=== PATIENT | female | born 1985 | race Caucasian/White ===

== ENCOUNTER 2017-01-22 19:20 | Emergency (ER) | payer OTHER ==
[2017-01-22] MEDS ORDERED: Sodium Chloride 0.9% 10 ML Syringe FLUSH PRN (19:46)
[2017-01-22] MEDS ORDERED: methylPREDNISolone Sodium Succinate 125 MG/2 ML SDV IVPUSH ONE (19:46)
[2017-01-22] MEDS ORDERED: Albuterol/Ipratropium 3.0-0.5 MG/3 ML Neb Soln NEB ONE (19:47)
--- NOTE | 2017-01-22 19:56 | EDM.PDOC ---
ED HPI GENERAL MEDICAL PROBLEM - General Chief Complaint: Respiratory Problem Stated Complaint: SOB Time Seen by Provider: 01/22/17 19:40 Source of Information: Reports: Patient History Limitations: Reports: No Limitations - History of Present Illness INITIAL COMMENTS - FREE TEXT/NARRATIVE: The patient presents with shortness of breath and wheezing. This started today. She just moved here and she was moving her stuff in the house and there was dust and that triggered an asthma exacerbation. She has moderate to severe asthma. She has no fever. She does have a cough. Onset: Gradual Duration: Hour(s): Location: Reports: Chest Quality: Reports: Other (tightness) Severity: Mild Improves with: Reports: Immobilization Worsens with: Reports: Movement Context: Reports: Activity (She was moving into her house) Associated Symptoms: Reports: Chest Pain, Cough, Shortness of Breath. Denies: Fever/Chills, Nausea/Vomiting Chest Pain Score (Numeric/FACES): 3 - Related Data Allergies Allergy/AdvReac Type Severity Reaction Status Date / Time animal dander Allergy Shortness Verified 01/22/17 19:32 of Breath Home Meds: Home Meds Prednisone [IJD: predniSONE] 40 mg PO WITHBREAKFAST #10 tab 01/22/17 [Rx] Past Medical History Respiratory History: Reports: Asthma, SOB Musculoskeletal History: Reports: Fibromyalgia Psychiatric History: Reports: Depression Social & Family History - Tobacco Use Smoking Status *Q: Never Smoker Second Hand Smoke Exposure: No - Caffeine Use Caffeine Use: Reports: Coffee - Recreational Drug Use Recreational Drug Use: No ED ROS GENERAL - Review of Systems Review Of Systems: See Below Constitutional: Reports: No Symptoms HEENT: Reports: No Symptoms Respiratory: Reports: Shortness of Breath, Wheezing, Cough Cardiovascular: Reports: Chest Pain (tightness) Endocrine: Reports: No Symptoms GI/Abdominal: Reports: No Symptoms : Reports: No Symptoms ED EXAM, GENERAL - Physical Exam Exam: See Below Exam Limited By: No Limitations General Appearance: Alert, No Apparent Distress Ears: Normal External Exam Nose: Normal Inspection Head: Atraumatic, Normocephalic Neck: Normal Inspection Respiratory/Chest: No Respiratory Distress, Decreased Breath Sounds, Wheezing ( Moderate) Cardiovascular: Regular Rate, Rhythm, No Edema, No Murmur GI/Abdominal: Soft, Non-Tender, No Organomegaly, No Mass Back Exam: Normal Inspection Extremities: Normal Inspection Course - Vital Signs Last Recorded V/S: Last Vital Signs Temp 97.1 F 01/22/17 19:26 Pulse 91 01/22/17 19:26 Resp 18 01/22/17 19:26 BP 141/99 H 01/22/17 19:26 Pulse Ox 94 L 01/22/17 20:04 - Orders/Labs/Meds Orders: Active Orders 24 hr Category Date Time Status Peripheral IV Care [RC] . DIRECTED Care 01/22/17 19:46 Active RT Aerosol Therapy [RC] ASDIRECTED Care 01/22/17 19:47 Active RT Post Treatment Assessment [RC] Click to Edit Care 01/22/17 20:20 Ordered RT Pre-Treatment Assessment [RC] Click to Edit Care 01/22/17 20:20 Ordered Albuterol [Proventil HFA] Med 01/22/17 20:20 Once 1 gm INH ONETIME ONE Sodium Chloride 0.9% [Saline Flush] Med 01/22/17 19:46 Active 10 ml FLUSH ASDIRECTED PRN Peripheral IV Insertion Adult [OM.PC] Routine Oth 01/22/17 19:46 Ordered Medication Orders Sodium Chloride (Saline Flush) 10 ml FLUSH ASDIRECTED PRN PRN Reason: Keep Vein Open Last Admin: 01/22/17 19:57 Dose: 10 ml Meds: Medications Generic Name Dose Route Start Last Admin Trade Name Freq PRN Reason Stop Dose Admin Sodium Chloride 10 ml 01/22/17 19:46 01/22/17 19:57 Saline Flush FLUSH 10 ml ASDIRECTED PRN Administration Keep Vein Open Discontinued Medications Generic Name Dose Route Start Last Admin Trade Name Freq PRN Reason Stop Dose Admin Albuterol/Ipratropium 3 ml 01/22/17 19:47 01/22/17 20:02 Duoneb 3.0-0.5 Mg/3 Ml NEB 01/22/17 19:48 3 ml ONETIME ONE Administration Methylprednisolone Sodium Succinate 125 mg 01/22/17 19:46 01/22/17 19:57 Solu-Medrol IVPUSH 01/22/17 19:47 125 mg ONETIME ONE Administration - Re-Assessments/Exams Free Text/Narrative Re-Assessment/Exam: 01/22/17 19:56 I ordered an IV saline lock, duoneb and solu-medrol 125mg IV. 01/22/17 20:20 She is moving air better. I will give her an albuterol inhaler 2 puffs now and a prescription for some prednisone. Departure - Departure Time of Disposition: 20:25 Disposition: Home, Self-Care 01 Condition: Good Clinical Impression: Exacerbation of asthma Qualifiers: Asthma severity: moderate Asthma persistence: unspecified Qualified Code(s): J45.901 - Unspecified asthma with (acute) exacerbation - Discharge Information Prescriptions: Prednisone [IJD: predniSONE] 40 mg PO WITHBREAKFAST #10 tab Referrals: PCP,None [Primary Care Provider] - Adeline Villanueva MD [Physician] - 1 Week Forms: ED Department Discharge Additional Instructions: Take the prednisone 40mg daily for 5 days. You can start it tomorrow morning. You had a dose tonight. Use the albuterol inhaler 2 puffs every 4 to 6 hours as needed for wheezing and shortness of breath. Follow up with Dr Villanueva or one of her partners within 1 week. Please return if you are worse. - My Orders Last 24 Hours: My Active Orders 01/22/17 19:46 Peripheral IV Care [RC] . DIRECTED Sodium Chloride 0.9% [Saline Flush] 10 ml FLUSH ASDIRECTED PRN Peripheral IV Insertion Adult [OM.PC] Routine 01/22/17 19:47 RT Aerosol Therapy [RC] ASDIRECTED 01/22/17 20:20 RT Post Treatment Assessment [RC] Click to Edit RT Pre-Treatment Assessment [RC] Click to Edit Albuterol [Proventil HFA] 1 gm INH ONETIME ONE - Assessment/Plan Last 24 Hours: My Active Orders 01/22/17 19:46 Peripheral IV Care [RC] . DIRECTED Sodium Chloride 0.9% [Saline Flush] 10 ml FLUSH ASDIRECTED PRN Peripheral IV Insertion Adult [OM.PC] Routine 01/22/17 19:47 RT Aerosol Therapy [RC] ASDIRECTED 01/22/17 20:20 RT Post Treatment Assessment [RC] Click to Edit RT Pre-Treatment Assessment [RC] Click to Edit Albuterol [Proventil HFA] 1 gm INH ONETIME ONE
[2017-01-22] MEDS ORDERED: Albuterol 6.7 GM Inhaler INH ONE (20:20)
== END 2017-01-22 20:40 | disposition home or self-care (01) ==
LOC: JD.ED 19:20
DX: J45.901 Unspecified asthma with (acute) exacerbation (principal)
CPT/HCPCS: 94640; 96374; 99285; A9270; J2930; J7050; 99284

== ENCOUNTER 2017-09-15 02:28 | Inpatient (IN) | payer OTHER ==
[2017-09-15] MEDS ORDERED: Albuterol/Ipratropium 3.0-0.5 MG/3 ML Neb Soln NEB ONE (02:49)
[2017-09-15] MEDS ORDERED: predniSONE 20 MG Tab PO STA (02:49)
[2017-09-15] MEDS ORDERED: Sodium Chloride 0.9% 10 ML Syringe FLUSH PRN (02:50)
[2017-09-15] MEDS ORDERED: Ondansetron 4 MG/2 ML SDV IVPUSH ONE (03:40)
[2017-09-15] MEDS ORDERED: Albuterol 0.083% 2.5 MG/3 ML Neb Soln NEB ONE ×3 (04:15→07:23)
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
[2017-09-15] MEDS ORDERED: Acetaminophen 325 MG Tab PO PRN (09:31)
[2017-09-15] MEDS ORDERED: Ondansetron 4 MG Tab.DIS PO PRN (09:31)
[2017-09-15] MEDS ORDERED: Polyethylene Glycol 3350 Powder 17 GM Packet PO PRN (09:31)
[2017-09-15] MEDS ORDERED: Albuterol 0.083% 2.5 MG/3 ML Neb Soln NEB PRN (09:31)
[2017-09-15] MEDS ORDERED: Ondansetron 4 MG/2 ML SDV IV PRN (09:31)
[2017-09-15] MEDS ORDERED: Docusate Sodium 100 MG Cap PO PRN (09:31)
[2017-09-15] MEDS ORDERED: Bisacodyl 5 MG Tab PO PRN (09:31)
[2017-09-15] MEDS ORDERED: Albuterol/Ipratropium 3.0-0.5 MG/3 ML Neb Soln NEB SCH ×2 (10:00→13:00)
[2017-09-15] MEDS: SALMETEROL PO SCH ×2 (11:27→20:35)
[2017-09-15] MEDS: FLUTICASONE PO SCH ×2 (11:27→20:35)
[2017-09-15] MEDS: methylPREDNISolone Sodium Succinate 125 MG/2 ML SDV IVPUSH SCH ×2 (11:47→18:15)
[2017-09-15] MEDS: Doxycycline 100 MG in Sodium Chloride 0.9% 100 ML IV SCH (13:27)
[2017-09-15] MEDS: Levalbuterol HCl 1.25 MG/3 ML Neb NEB SCH ×2 (15:06→20:34)
[2017-09-15] MEDS: Ipratropium 0.02% 0.5 MG/2.5 ML Neb Soln NEB SCH ×2 (15:06→20:34)
[2017-09-15] MEDS: Calcium Carbonate 500 MG Tab.Chew PO PRN (19:58)
[2017-09-15] MEDS: Montelukast 10 MG Tab PO SCH (21:20)
[2017-09-15] MEDS: Famotidine 20 MG Tab PO SCH ×2 (21:20→21:49)
[2017-09-16] MEDS: methylPREDNISolone Sodium Succinate 125 MG/2 ML SDV IVPUSH SCH ×3 (01:08→17:40)
[2017-09-16] MEDS: Doxycycline 100 MG in Sodium Chloride 0.9% 100 ML IV SCH ×2 (01:14→13:58)
[2017-09-16] MEDS: Ipratropium 0.02% 0.5 MG/2.5 ML Neb Soln NEB SCH ×3 (06:20→15:10)
[2017-09-16] MEDS: Levalbuterol HCl 1.25 MG/3 ML Neb NEB SCH ×4 (06:20→20:46)
[2017-09-16] MEDS: Famotidine 20 MG Tab PO SCH ×2 (09:05→20:59)
[2017-09-16] MEDS: FLUTICASONE PO SCH ×2 (09:32→20:46)
[2017-09-16] MEDS: SALMETEROL PO SCH ×2 (09:32→20:46)
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
[2017-09-16] MEDS ORDERED: LORazepam 0.5 MG Tab PO PRN (18:18)
[2017-09-16] MEDS ORDERED: Ipratropium 0.02% 0.5 MG/2.5 ML Neb Soln NEB PRN (18:22)
[2017-09-16] MEDS: Formoterol/Mometasone 200-5 MCG 8.8 GM Inhaler IH SCH (20:46)
[2017-09-16] MEDS: Montelukast 10 MG Tab PO SCH (20:59)
[2017-09-16] MEDS: Topiramate 25 MG Tab PO SCH (20:59)
[2017-09-17] MEDS: Doxycycline 100 MG in Sodium Chloride 0.9% 100 ML IV SCH ×2 (00:41→12:46)
[2017-09-17] MEDS ORDERED: methylPREDNISolone Sodium Succinate 125 MG/2 ML SDV IVPUSH SCH (06:00)
[2017-09-17] MEDS: metFORMIN 500 MG Tab PO SCH ×2 (06:00→17:25)
[2017-09-17] MEDS: Formoterol/Mometasone 200-5 MCG 8.8 GM Inhaler IH SCH ×2 (06:32→20:59)
[2017-09-17] MEDS: Levalbuterol HCl 1.25 MG/3 ML Neb NEB SCH ×4 (06:32→20:59)
--- NOTE | 2017-09-17 08:31 | CR ---
Chest: 2 views of the chest were obtained. Comparison: Prior chest x-ray of 09/15/17. Heart size and mediastinum are normal. Lungs are clear. No acute parenchymal densities are seen. Atelectasis that was seen previously has resolved. Bony structures appear within normal limits. Impression: 1. Resolved atelectasis. Nothing acute is appreciated. Diagnostic code #1
[2017-09-17] MEDS: UMECLIDINIUM BROMIDE INH SCH (09:23)
[2017-09-17] MEDS: [UNRECOGNIZED DRUG - SUPPLY] INH SCH (09:25)
[2017-09-17] MEDS: Topiramate 25 MG Tab PO SCH ×2 (09:52→21:16)
[2017-09-17] MEDS: Ferrous Sulfate 325 MG Tab PO SCH (09:52)
[2017-09-17] MEDS: Citalopram 20 MG Tab PO SCH (09:52)
[2017-09-17] MEDS: Famotidine 20 MG Tab PO SCH ×2 (09:52→21:16)
[2017-09-17] MEDS: Loratadine 10 MG Tab PO SCH (09:52)
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
[2017-09-17] MEDS: methylPREDNISolone Sodium Succinate 125 MG/2 ML SDV IVPUSH SCH (17:27)
[2017-09-17] MEDS: Calcium Carbonate 500 MG Tab.Chew PO PRN (19:37)
[2017-09-17] MEDS: Doxycycline 100 MG Cap PO SCH (21:17)
[2017-09-17] MEDS: Montelukast 10 MG Tab PO SCH (21:17)
[2017-09-18] MEDS: methylPREDNISolone Sodium Succinate 125 MG/2 ML SDV IVPUSH SCH (05:57)
[2017-09-18] MEDS: metFORMIN 500 MG Tab PO SCH (06:01)
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
[2017-09-18] MEDS: Formoterol/Mometasone 200-5 MCG 8.8 GM Inhaler IH SCH (06:36)
[2017-09-18] MEDS: Levalbuterol HCl 1.25 MG/3 ML Neb NEB SCH ×2 (06:36→09:25)
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
[2017-09-18] MEDS: Loratadine 10 MG Tab PO SCH (08:10)
[2017-09-18] MEDS: Citalopram 20 MG Tab PO SCH (08:10)
[2017-09-18] MEDS: Topiramate 25 MG Tab PO SCH (08:11)
[2017-09-18] MEDS: Ferrous Sulfate 325 MG Tab PO SCH (08:11)
[2017-09-18] MEDS: Doxycycline 100 MG Cap PO SCH (08:11)
[2017-09-18] MEDS: Famotidine 20 MG Tab PO SCH (08:11)
[2017-09-18] MEDS: UMECLIDINIUM BROMIDE INH SCH (09:25)
[2017-09-18] MEDS: [UNRECOGNIZED DRUG - SUPPLY] INH SCH (09:26)
== END 2017-09-18 13:21 | disposition home or self-care (01) | DRG 194 ==
LOC: JD.ED 02:28 → JD.MS 08:40 → OBSVTOIN 12:19
PROVIDERS: ADMIT Internal Medicine Cardiovascular Disease; ATTEND Internal Medicine Cardiovascular Disease
DX: J15.7 Pneumonia due to Mycoplasma pneumoniae (principal); J45.901 Unspecified asthma with (acute) exacerbation; Z68.41 Body mass index [BMI] 40.0-44.9, adult; R09.02 Hypoxemia; E66.01 Morbid (severe) obesity due to excess calories; R00.0 Tachycardia, unspecified; E78.5 Hyperlipidemia, unspecified; Z91.048 Other nonmedicinal substance allergy status; Z79.51 Long term (current) use of inhaled steroids; Z79.52 Long term (current) use of systemic steroids
CPT/HCPCS: 36415; 71046; 71046-26; 80048; 80061; 83036; 83735; 84703; 85025; 86140; 86738; 87486; 87581; 87633; 87798; 87899; 94640; 94664; 94667; 94761; 96374; 99284; 99285-25; A9270; A9270-GY; J2405; J2930; J7030; J7050; J7612

== ENCOUNTER 2019-03-22 17:24 | Inpatient (IN) | payer BC ==
[2019-03-22] MEDS ORDERED: Albuterol/Ipratropium 3.0-0.5 MG/3 ML Neb Soln NEB ONE ×2 (17:27→17:50)
[2019-03-22] MEDS ORDERED: methylPREDNISolone Sodium Succinate 125 MG/2 ML SDV IVPUSH ONE (17:28)
[2019-03-22] MEDS ORDERED: Magnesium Sulfate/Water 2 GM in Premix Bag 1 BAG IV ONE ×2 (17:30→20:00)
[2019-03-22] MEDS ORDERED: Albuterol/Ipratropium 3.0-0.5 MG/3 ML Neb Soln ONE (17:30)
[2019-03-22] MEDS ORDERED: Sodium Chloride 0.9% 10 ML Syringe FLUSH PRN (17:32)
[2019-03-22] MEDS ORDERED: Sodium Chloride 0.9% 1,000 ML IV SCH (17:45)
[2019-03-22] MEDS ORDERED: Albuterol 0.083% 2.5 MG/3 ML Neb Soln NEB ONE (17:51)
--- NOTE | 2019-03-22 18:04 | EDM.PDOC ---
ED HPI GENERAL MEDICAL PROBLEM - General Chief Complaint: Respiratory Problem Stated Complaint: SOB Time Seen by Provider: 03/22/19 17:32 Source of Information: Reports: Patient History Limitations: Reports: Respiratory Distress - History of Present Illness INITIAL COMMENTS - FREE TEXT/NARRATIVE: Patient is a 33-year-old female who presents with an acute asthma exacerbation. Patient does have a long history of severe asthma and states that the symptoms began 3 days ago, however they significantly worsened this afternoon. She has given herself numerous albuterol nebulizer treatments at home without relief. Upon presenting to the ER, she was 85% oxygen on room air and was in visible respiratory distress. She is able to speak a couple words at a time. Patient does state that she has a history of recent pneumonia for which she was hospitalized here. She denies contact with any known allergens. - Related Data Allergies Allergy/AdvReac Type Severity Reaction Status Date / Time animal dander Allergy Shortness Verified 10/03/18 09:33 of Breath seasonal allergies Allergy Other Uncoded 10/03/18 09:33 Home Meds: Home Meds Cetirizine [ZyrTEC] 10 mg PO DAILY 09/15/17 [History] Ferrous Sulfate 325 mg PO DAILY 09/15/17 [History] Montelukast Sodium [Singulair] 10 mg PO BEDTIME 09/15/17 [History] Peak Flow Meter [Peak-Air] 1 unit INH DAILY 09/15/17 [History] Topiramate 25 mg PO BID 09/15/17 [History] metFORMIN [Glucophage] 1,000 mg PO BIDMEALS 09/15/17 [History] raNITIdine HCl [Zantac] 150 mg PO BID PRN 09/15/17 [History] Albuterol Sulfate [Proair Hfa] 2 puff INH Q4H PRN #2 hfa.aer.ad 09/18/17 [Rx] Budesonide/Formoterol Fumarate [Symbicort 160-4.5 Mcg Inhaler] 2 puff INH BID # 1 hfa.aer.ad 09/18/17 [Rx] Cyclobenzaprine [Flexeril] 10 mg PO TID PRN #20 tab 10/03/18 [Rx] Azithromycin [Zithromax] 250 mg PO Q24H #4 tablet 01/12/19 [Rx] predniSONE 40 mg PO WITHBREAKFAST #8 tablet 01/12/19 [Rx] Past Medical History HEENT History: Reports: Other (See Below) Other HEENT History: sinus headaches Cardiovascular History: Reports: None Respiratory History: Reports: Asthma, Pneumonia, Recurrent, SOB, Other (See Below) Other Respiratory History: RSV, bronchial pneumonia has had breathing issues since then approx. 15 yrs. 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: Musculoskeletal History: Reports: Arthritis, Fibromyalgia Neurological History: Reports: Migraines Psychiatric History: Reports: Anxiety, Depression Endocrine/Metabolic History: Reports: Obesity/BMI 30+ Hematologic History: Reports: Anemia Immunologic History: Reports: None Oncologic (Cancer) History: Reports: None Dermatologic History: Reports: None - Infectious Disease History Infectious Disease History: Reports: Chicken Pox, RSV - Past Surgical History HEENT Surgical History: Reports: None, Other (See Below) Other HEENT Surgeries/Procedures: sinus surgery Respiratory Surgical History: Reports: None GI Surgical History: Reports: Bariatric Procedure, Other (See Below) Other GI Surgeries/Procedures: gastric "sleeve"-2014 Female Surgical History: Reports: Section, Tubal Ligation Endocrine Surgical History: Reports: None Neurological Surgical History: Reports: None Musculoskeletal Surgical History: Reports: None, Other (See Below) Other Musculoskeletal Surgeries/Procedures:: slipped discs, and spinal degeneration Dermatological Surgical History: Reports: None Social & Family History - Family History Family Medical History: Noncontributory - Tobacco Use Smoking Status *Q: Never Smoker Second Hand Smoke Exposure: No - Caffeine Use Caffeine Use: Reports: Coffee - Living Situation & Occupation Living situation: Reports: , with Spouse, with Family (3 kids) Occupation: Unemployed ED ROS GENERAL - Review of Systems Review Of Systems: See Below Constitutional: Reports: No Symptoms. Denies: Fever, Chills HEENT: Reports: No Symptoms Respiratory: Reports: Shortness of Breath, Wheezing, Pleuritic Chest Pain, Cough Cardiovascular: Reports: No Symptoms Endocrine: Reports: No Symptoms GI/Abdominal: Reports: No Symptoms : Reports: No Symptoms Musculoskeletal: Reports: No Symptoms Skin: Reports: No Symptoms Neurological: Reports: No Symptoms Psychiatric: Reports: No Symptoms Hematologic/Lymphatic: Reports: No Symptoms Immunologic: Reports: No Symptoms ED EXAM, GENERAL - Physical Exam Exam: See Below Exam Limited By: No Limitations General Appearance: Alert, WD/WN, Moderate Distress Respiratory/Chest: Respiratory Distress, Decreased Breath Sounds, Wheezing ( inspipatory and expiratory throughtout), Other Cardiovascular: Normal Peripheral Pulses, Regular Rate, Rhythm, No Murmur Neurological: Alert, Oriented, Normal Cognition Psychiatric: Normal Affect, Anxious Skin Exam: Warm, Dry, Normal Color, No Rash Course - Vital Signs Last Recorded V/S: Last Vital Signs Temp 96.2 F 03/22/19 17:29 Pulse 126 H 03/22/19 17:29 Resp 34 H 03/22/19 17:29 BP 143/106 H 03/22/19 17:29 Pulse Ox 100 03/22/19 18:45 - Orders/Labs/Meds Orders: Active Orders 24 hr Category Date Time Status Peripheral IV Care [RC] . DIRECTED Care 03/22/19 17:32 Active RT Aerosol Therapy [RC] ASDIRECTED Care 03/22/19 17:27 Active RT Aerosol Therapy [RC] ASDIRECTED Care 03/22/19 17:51 Active RT Aerosol Therapy [RC] ASDIRECTED Care 03/22/19 17:52 Active Chest 1V Frontal [CR] Stat Exams 03/22/19 17:32 Taken INFLUENZA A+B AG SCREEN [RM] Stat Lab 03/22/19 18:17 Ordered Levofloxacin/Dextrose 5%-Water [Levaquin in D5W 750 MG/ Med 03/22/19 18:33 Active 150 ML] 750 mg Premix Bag 1 bag IV ONETIME Sodium Chloride 0.9% [Normal Saline] 1,000 ml Med 03/22/19 17:45 Active IV ASDIRECTED Sodium Chloride 0.9% [Saline Flush] Med 03/22/19 17:32 Active 10 ml FLUSH ASDIRECTED PRN Peripheral IV Insertion Adult [OM.PC] Stat Oth 03/22/19 17:32 Ordered Medication Orders Albuterol/Ipratropium (Duoneb 3.0-0.5 Mg/3 Ml) 3 ml NEB Q4HRRT ELLIE Budesonide (Pulmicort) 0.5 mg NEB BIDRT ELLIE Enoxaparin Sodium (Lovenox) 40 mg SUBCUT DAILY ELLIE Guaifenesin (Robitussin) 200 mg PO Q8H ELLIE Guaifenesin/Codeine Phosphate (Robitussin Ac) 5 ml PO Q6H ELLIE Sodium Chloride (Normal Saline) 1,000 mls @ 500 mls/hr IV ASDIRECTED ELLIE Last Admin: 03/22/19 17:54 Dose: 500 mls/hr Levofloxacin/Dextrose 750 mg/ (Premix) 150 mls @ 100 mls/hr IV ONETIME ONE Stop: 03/22/19 20:02 Levofloxacin/Dextrose 750 mg/ (Premix) 150 mls @ 100 mls/hr IV Q24H ELLIE Ipratropium [place] (Atrovent) 0.5 mg NEB Q8HRRT ELLIE Morphine Sulfate (Morphine) 1 mg IVPUSH Q2H PRN PRN Reason: Pain (severe 7-10) Stop: 03/23/19 18:37 Sodium Chloride (Saline Flush) 10 ml FLUSH ASDIRECTED PRN PRN Reason: Keep Vein Open Last Admin: 03/22/19 17:47 Dose: 10 ml Labs: Laboratory Tests 03/22/19 03/22/19 03/22/19 Range/Units 17:30 17:30 18:17 WBC 9.65 (3.98-10.04) K/mm3 RBC 5.90 H (3.98-5.22) M/mm3 Hgb 11.1 L (11.2-15.7) gm/dl Hct 37.1 (34.1-44.9) % MCV 62.9 L (79.4-94.8) fl MCH 18.8 L (25.6-32.2) pg MCHC 29.9 L (32.2-35.5) g/dl RDW Std Deviation 46.9 H (36.4-46.3) fL Plt Count 512 H (182-369) K/mm3 MPV 10.1 (9.4-12.3) fl Neut % (Auto) 55.9 (34.0-71.1) % Lymph % (Auto) 19.0 L (19.3-51.7) % [place] % (Auto) 4.5 L (4.7-12.5) % Eos % (Auto) 19.0 H (0.7-5.8) Baso % (Auto) 1.5 H (0.1-1.2) % Neut # (Auto) 5.41 (1.56-6.13) K/mm3 Lymph # (Auto) 1.83 (1.18-3.74) K/mm3 [place] # (Auto) 0.43 H (0.24-0.36) K/mm3 Eos # (Auto) 1.83 H (0.04-0.36) K/mm3 Baso # (Auto) 0.14 H (0.01-0.08) K/mm3 Manual Slide Review Abnormal smear Puncture Site Lt radial ABG pH 7.31 L (7.35-7.45) ABG pCO2 42.7 (35.0-45.0) mmHg ABG pO2 60.0 L (80.0-100.0) mmHg ABG HCO3 20.9 L (22.0-26.0) meq/L ABG O2 Saturation 89.9 L (96.0-97.0) % ABG Base Excess -4.5 L (-2-2.0) Paulie Test Positive O2 Delivery Device Room air FiO2 0.00 L (21.00-100.00) % Sodium 139 (136-145) mEq/L Potassium 3.9 (3.5-5.1) mEq/L Chloride 105 (98-107) mEq/L Carbon Dioxide 23 (21-32) mEq/L Anion Gap 14.9 (5-15) BUN 6 L (7-18) mg/dL Creatinine 1.0 (0.55-1.02) mg/dL Est Cr Clr Drug Dosing 74.21 mL/min Estimated GFR (MDRD) > 60 (>60) mL/min BUN/Creatinine Ratio 6.0 L (14-18) Glucose 94 (74-106) mg/dL Calcium 8.7 (8.5-10.1) mg/dL Total Bilirubin 0.4 (0.2-1.0) mg/dL AST 18 (15-37) U/L ALT 21 (14-59) U/L Alkaline Phosphatase 57 (46-116) U/L Total Protein 7.9 (6.4-8.2) g/dl Albumin 3.9 (3.4-5.0) g/dl Globulin 4.0 gm/dL Albumin/Globulin Ratio 1.0 (1-2) Meds: Medications Generic Name Dose Route Start Last Admin Trade Name Freq PRN Reason Stop Dose Admin Albuterol/Ipratropium 3 ml 03/22/19 22:00 Duoneb 3.0-0.5 Mg/3 Ml NEB Q4HRRT ELLIE Budesonide 0.5 mg 03/22/19 21:00 Pulmicort NEB BIDRT ELLIE Enoxaparin Sodium 40 mg 03/23/19 09:00 Lovenox SUBCUT DAILY ELLIE Guaifenesin 200 mg 03/22/19 22:00 Robitussin PO Q8H ELLIE Guaifenesin/Codeine Phosphate 5 ml 03/22/19 18:45 Robitussin Ac PO Q6H ELLIE Sodium Chloride 1,000 mls @ 500 mls/hr 03/22/19 17:45 03/22/19 17:54 Normal Saline IV 500 mls/hr ASDIRECTED ELLIE Administration Levofloxacin/Dextrose 750 mg/ 150 mls @ 100 mls/hr 03/22/19 18:33 Premix IV 03/22/19 20:02 ONETIME ONE Levofloxacin/Dextrose 750 mg/ 150 mls @ 100 mls/hr 03/22/19 19:00 Premix IV Q24H ELLIE Ipratropium [place] 0.5 mg 03/22/19 21:00 Atrovent NEB Q8HRRT ELLIE Morphine Sulfate 1 mg 03/22/19 18:35 Morphine IVPUSH 03/23/19 18:37 Q2H PRN Pain (severe 7-10) Sodium Chloride 10 ml 03/22/19 17:32 03/22/19 17:47 Saline Flush FLUSH 10 ml ASDIRECTED PRN Administration Keep Vein Open Discontinued Medications Generic Name Dose Route Start Last Admin Trade Name Freq PRN Reason Stop Dose Admin Albuterol 7.5 mg 03/22/19 17:51 03/22/19 18:00 Proventil Neb Soln NEB 03/22/19 17:52 7.5 mg ONETIME ONE Administration Albuterol/Ipratropium 3 ml 03/22/19 17:27 03/22/19 17:34 Duoneb 3.0-0.5 Mg/3 Ml NEB 03/22/19 17:28 Not Given ONETIME ONE Albuterol/Ipratropium Confirm 03/22/19 17:30 03/22/19 17:34 Duoneb 3.0-0.5 Mg/3 Ml Administered 03/22/19 17:31 3 ml Dose Administration 3 ml .ROUTE .STK-MED ONE Albuterol/Ipratropium 3 ml 03/22/19 17:50 03/22/19 17:52 Duoneb 3.0-0.5 Mg/3 Ml NEB 03/22/19 17:51 3 ml ONETIME ONE Administration Magnesium Sulfate 2 gm/ Premix 50 mls @ 50 mls/hr 03/22/19 17:30 03/22/19 17: 50 IV 03/22/19 18:29 50 mls/hr ONETIME ONE Administration Methylprednisolone Sodium Succinate 125 mg 03/22/19 17:28 03/22/19 17:46 Solu-Medrol IVPUSH 03/22/19 17:29 125 mg ONETIME ONE Administration Oseltamivir Phosphate 75 mg 03/22/19 18:34 Tamiflu PO 03/22/19 18:35 ONETIME ONE - Re-Assessments/Exams Free Text/Narrative Re-Assessment/Exam: Upon entering the room, patient was in obvious respiratory distress. She sitting upright leaning forward and speaks in 1-2 word sentences. Oxygen saturation was initially 85% on room air. O2 was applied at 2 L via nasal cannula with improvement to 94% percent noted. DuoNeb treatment was ordered and will be repeated in 20 minutes, as well as solu-Medrol 125 mg IV, magnesium 2 mg IV, nS at 500 mils per hour, and albuterol 7.5 mg continuous after the second DuoNeb is complete. CBC, CMP, ekg, influenza screen, and two-view chest x-ray have also been ordered. Patient does have a history of needing to be hospitalized for her acute asthma exacerbations. We'll reassess after her continuous albuterol treatment is completed. 03/22/19 18:08 Patient only mildly improved after the 2 DuoNeb treatments and continuous albuterol treatment. She is 89-90% on room air with the albuterol running. Chest x-ray shows bibasilar atelectasis. There is no signs of pneumonia. EKG shows no acute abnormalities. Lab tests are still pending. I have contacted Dr. Gerardo regarding admission to the hospital. She requested that we order an ABG and she will be in to see the patient. 03/22/19 18:32 Dr. Gerardo will be admitting the patient to ICU for acute asthma exacerbation. She did quest that we order Levaquin 750 mg IV now and start her on Tamiflu. Departure - Departure Time of Disposition: 18:34 Disposition: Admitted As Inpatient 65 Condition: Poor Clinical Impression: Exacerbation of asthma Qualifiers: Asthma severity: moderate Asthma persistence: unspecified Qualified Code(s): J45.901 - Unspecified asthma with (acute) exacerbation - Discharge Information *PRESCRIPTION DRUG MONITORING PROGRAM REVIEWED*: No *COPY OF PRESCRIPTION DRUG MONITORING REPORT IN PATIENT MARCOS: No Sepsis Event Note - Evaluation Sepsis Screening Result: No Definite Risk - Focused Exam Vital Signs: Vital Signs Temp Pulse Resp BP Pulse Ox Pulse Ox 03/22/19 17:51 92 L 03/22/19 17:29 96.2 F 126 H 34 H 143/106 H 85 L 03/22/19 17:27 92 L Date Exam was Performed: 03/22/19 Time Exam was Performed: 18:52 - My Orders Last 24 Hours: My Active Orders 03/22/19 17:27 RT Aerosol Therapy [RC] ASDIRECTED 03/22/19 17:32 Peripheral IV Care [RC] . DIRECTED Chest 1V Frontal [CR] Stat Sodium Chloride 0.9% [Saline Flush] 10 ml FLUSH ASDIRECTED PRN Peripheral IV Insertion Adult [OM.PC] Stat 03/22/19 17:45 Sodium Chloride 0.9% [Normal Saline] 1,000 ml IV ASDIRECTED 03/22/19 17:51 RT Aerosol Therapy [RC] ASDIRECTED 03/22/19 17:52 RT Aerosol Therapy [RC] ASDIRECTED 03/22/19 18:17 INFLUENZA A+B AG SCREEN [RM] Stat 03/22/19 18:33 Levofloxacin/Dextrose 5%-Water [Levaquin in D5W 750 MG/150 ML] 750 mg Premix Bag 1 bag IV ONETIME - Assessment/Plan Last 24 Hours: My Active Orders 03/22/19 17:27 RT Aerosol Therapy [RC] ASDIRECTED 03/22/19 17:32 Peripheral IV Care [RC] . DIRECTED Chest 1V Frontal [CR] Stat Sodium Chloride 0.9% [Saline Flush] 10 ml FLUSH ASDIRECTED PRN Peripheral IV Insertion Adult [OM.PC] Stat 03/22/19 17:45 Sodium Chloride 0.9% [Normal Saline] 1,000 ml IV ASDIRECTED 03/22/19 17:51 RT Aerosol Therapy [RC] ASDIRECTED 03/22/19 17:52 RT Aerosol Therapy [RC] ASDIRECTED 03/22/19 18:17 INFLUENZA A+B AG SCREEN [] Stat 03/22/19 18:33 Levofloxacin/Dextrose 5%-Water [Levaquin in D5W 750 MG/150 ML] 750 mg Premix Bag 1 bag IV ONETIME
[2019-03-22] MEDS ORDERED: Levofloxacin/Dextrose 5%-Water 750 MG in Premix Bag 1 BAG IV ONE (18:33)
[2019-03-22] MEDS ORDERED: Oseltamivir 75 MG Cap PO ONE (18:34)
[2019-03-22] MEDS ORDERED: Morphine 2 MG/ML Syringe IVPUSH PRN (18:35)
--- NOTE | 2019-03-22 18:49 | PCM.HP.2 ---
H&P History of Present Illness - General Date of Service: 03/22/19 Admit Problem/Dx: Admission Diagnosis/Problem Admission Diagnosis/Problem Asthma with status asthmaticus - History of Present Illness Initial Comments - Free Text/Narative: This is a 33 year old female with past medical history of asthma who comes to the ED for acutely worsening shortness of breath. As per patient she has been having worsening cough and shortness of breath not responsive to PRN albuterol. Once she noticed her shortness of breath was not getting any better to the point that she was unable to catch her breath or speak, she decided to come in to the ED for further evaluation. - Related Data Allergies/Adverse Reactions: Allergies Allergy/AdvReac Type Severity Reaction Status Date / Time animal dander Allergy Shortness Verified 10/03/18 09:33 of Breath seasonal allergies Allergy Other Uncoded 10/03/18 09:33 Home Medications: Home Meds Cetirizine [ZyrTEC] 10 mg PO DAILY 09/15/17 [History] Ferrous Sulfate 325 mg PO DAILY 09/15/17 [History] Montelukast Sodium [Singulair] 10 mg PO BEDTIME 09/15/17 [History] Peak Flow Meter [Peak-Air] 1 unit INH DAILY 09/15/17 [History] Topiramate 25 mg PO BID 09/15/17 [History] metFORMIN [Glucophage] 1,000 mg PO BIDMEALS 09/15/17 [History] raNITIdine HCl [Zantac] 150 mg PO BID PRN 09/15/17 [History] Albuterol Sulfate [Proair Hfa] 2 puff INH Q4H PRN #2 hfa.aer.ad 09/18/17 [Rx] Budesonide/Formoterol Fumarate [Symbicort 160-4.5 Mcg Inhaler] 2 puff INH BID # 1 hfa.aer.ad 09/18/17 [Rx] Cyclobenzaprine [Flexeril] 10 mg PO TID PRN #20 tab 10/03/18 [Rx] Azithromycin [Zithromax] 250 mg PO Q24H #4 tablet 01/12/19 [Rx] predniSONE 40 mg PO WITHBREAKFAST #8 tablet 01/12/19 [Rx] Past Medical History HEENT History: Reports: Other (See Below) Other HEENT History: sinus headaches Cardiovascular History: Reports: None Respiratory History: Reports: Asthma, Pneumonia, Recurrent, SOB, Other (See Below) Other Respiratory History: RSV, bronchial pneumonia has had breathing issues since then approx. 15 yrs. 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: Musculoskeletal History: Reports: Arthritis, Fibromyalgia Neurological History: Reports: Migraines Psychiatric History: Reports: Anxiety, Depression Endocrine/Metabolic History: Reports: Obesity/BMI 30+ Hematologic History: Reports: Anemia Immunologic History: Reports: None Oncologic (Cancer) History: Reports: None Dermatologic History: Reports: None - Infectious Disease History Infectious Disease History: Reports: Chicken Pox, RSV - Past Surgical History HEENT Surgical History: Reports: None, Other (See Below) Other HEENT Surgeries/Procedures: sinus surgery Respiratory Surgical History: Reports: None GI Surgical History: Reports: Bariatric Procedure, Other (See Below) Other GI Surgeries/Procedures: gastric "sleeve"-2014 Female Surgical History: Reports: Section, Tubal Ligation Endocrine Surgical History: Reports: None Neurological Surgical History: Reports: None Musculoskeletal Surgical History: Reports: None, Other (See Below) Other Musculoskeletal Surgeries/Procedures:: slipped discs, and spinal degeneration Dermatological Surgical History: Reports: None Social & Family History - Family History Family Medical History: Noncontributory - Tobacco Use Smoking Status *Q: Never Smoker Second Hand Smoke Exposure: No - Caffeine Use Caffeine Use: Reports: Coffee - Living Situation & Occupation Living situation: Reports: , with Spouse, with Family (3 kids) Occupation: Unemployed H&P Review of Systems - Review of Systems: Review Of Systems: See Below General: Reports: Malaise. Denies: Fever, Chills, Weakness, Fatigue, Night Sweats, Diaphoresis, Decreased Appetite, Weight Loss, Weight Gain HEENT: Reports: Rhinitis, Post Nasal Drip, Sinus Congestion. Denies: Hearing Changes, Sore Throat, Vertigo Pulmonary: Reports: Shortness of Breath, Wheezing, Cough. Denies: Pleuritic Chest Pain, Sputum, Hemoptysis Cardiovascular: Reports: Chest Pain, Palpitations, Dyspnea on Exertion, Orthopnea. Denies: PND, Edema, Lightheadedness, Syncope, Claudication, Blood Pressure Problem Gastrointestinal: Denies: Abdominal Pain, Anorexia, Black Stool, Bloody Stool, Constipation, Diarrhea, Decreased Appetite, Difficulty Swallowing, Distension, Flatus, Hematemesis, Hematochezia, Melena, Mucous in Stool, Nausea, Stool Incontinence, Vomiting Genitourinary: Denies: Dysuria, Frequency, Burning, Pain, Urgency, Incontinence , Hematuria Musculoskeletal: Denies: Joint Pain, Joint Swelling, Muscle Pain, Muscle Stiffness Skin: Reports: Pallor. Denies: Cyanosis, Jaundice, Mottled, Diaphoresis, Dryness, Bruising, Pruritis Psychiatric: Denies: Confusion, Depression, Mood Lability, Anxiety, Agitation Neurological: Denies: Confusion, Dizziness, Headache, Numbness, Paresthesia Exam - Exam Exam: See Below - Vital Signs Vital Signs: Last Vital Signs Temp 96.2 F 03/22/19 17:29 Pulse 126 H 03/22/19 17:29 Resp 34 H 03/22/19 17:29 BP 143/106 H 03/22/19 17:29 Pulse Ox 92 L 03/22/19 17:51 Weight: 127.006 kg - Exam General: Alert, Oriented, Cooperative, Severe Distress HEENT: Other (injected conjunctiva, erythematous posterior pharynx) Neck: Supple, Trachea Midline, +2 Carotid Pulse wo Bruit, Full Range of Motion. No: Lymphadenopathy Lungs: Other (severely diminished air entry with wheezing throughout, minimal chest expansion) Cardiovascular: Tachycardia. No: Systolic Murmur, Diastolic Murmur, Rubs, Gallop/S3, Gallop/S4 GI/Abdominal Exam: Soft, Non-Tender. No: Guarding, Rebound Back Exam: Normal Inspection Extremities: Normal Inspection - Patient Data Result Diagrams: 03/22/19 17:30 03/22/19 17:30 Sepsis Event Note - Evaluation Sepsis Screening Result: No Definite Risk - Focused Exam Vital Signs: Vital Signs Temp Pulse Resp BP Pulse Ox Pulse Ox 03/22/19 17:51 92 L 03/22/19 17:29 96.2 F 126 H 34 H 143/106 H 85 L 03/22/19 17:27 92 L Date Exam was Performed: 03/22/19 Time Exam was Performed: 19:59 - Problem List (1) Severe asthma with exacerbation SNOMED Code(s): 086602220, 806720050 ICD Code: J45.901 - UNSPECIFIED ASTHMA WITH (ACUTE) EXACERBATION Status: Acute Current Visit: Yes (2) Microcytic hypochromic anemia SNOMED Code(s): 17635058 ICD Code: D50.9 - IRON DEFICIENCY ANEMIA, UNSPECIFIED Status: Acute Current Visit: Yes (3) Thrombocytosis SNOMED Code(s): 2490732 ICD Code: D47.3 - ESSENTIAL (HEMORRHAGIC) THROMBOCYTHEMIA Status: Acute Current Visit: Yes (4) Hyperlipidemia SNOMED Code(s): 50069566 ICD Code: E78.5 - HYPERLIPIDEMIA, UNSPECIFIED Status: Acute Priority: High Current Visit: No Qualifiers: Hyperlipidemia type: unspecified Qualified Code(s): E78.5 - Hyperlipidemia , unspecified (5) Hypoxemia SNOMED Code(s): 876135179 ICD Code: R09.02 - HYPOXEMIA Status: Acute Priority: High Current Visit : No (6) Tachycardia SNOMED Code(s): 9564852 ICD Code: R00.0 - TACHYCARDIA, UNSPECIFIED Status: Acute Priority: High Current Visit: No (7) Acute respiratory acidosis SNOMED Code(s): 78682390 ICD Code: E87.2 - ACIDOSIS Status: Acute Current Visit: Yes (8) Metabolic acidosis, normal anion gap (NAG) SNOMED Code(s): 784093102 ICD Code: E87.2 - ACIDOSIS Status: Acute Current Visit: Yes (9) Community acquired pneumonia SNOMED Code(s): 989682530 ICD Code: J18.9 - PNEUMONIA, UNSPECIFIED ORGANISM Status: Acute Current Visit: Yes Problem List Initiated/Reviewed/Updated: Yes Assessment/Plan Comment:: Severe asthma with exacerbation Community acquired pneumonia Acute respiratory acidosis Metabolic acidosis, normal anion gap (NAG) Hypoxemia Tachycardia Reactive Thrombocytosis URI symptoms for 1 week with worsening SOB Treated for PNA 1 month ago Came in to ED unable to speak more than 1 word at a time + SatO2 85% on RA No WBC count or fever PaO2 60 Given 4 DuoNebs in ED + Solumedrol + Mg SO4 2g PLAN - Start on BiPAP - Scheduled DuoNebs - Scheduled Budesonide - Scheduled Solumedrol - Start Levaquin - RSV panel - Procalcitonin - Mycoplasma and s. pneumo antigen - Admit to ICU Microcytic hypochromic anemia On iron supplementation at home PLAN - Iron level - B12, folic acid, reticulocyte count Hyperlipidemia No in statin benefit age group PLAN - Dietary consult - Encourage lifestyle modifications PROPHYLAXIS DVT- Lovenox GI- not indicated CODE STATUS: FULL CODE DISPOSITION: Patient will be admitted to ICU on BiPAP and scheduled neb treatments - Mortality Measure Prognosis:: Good
[2019-03-22] MEDS ORDERED: Levofloxacin/Dextrose 5%-Water 750 MG in Premix Bag 1 BAG IV SCH (19:00)
[2019-03-22] MEDS: Budesonide 0.5 MG/2 ML Neb Susp NEB SCH (20:41)
[2019-03-22] MEDS: Albuterol/Ipratropium 3.0-0.5 MG/3 ML Neb Soln NEB SCH (21:03)
[2019-03-22] MEDS: guaiFENesin 100 MG/5 ML Soln 10 ML UD Cup PO SCH (23:02)
[2019-03-23] MEDS: Albuterol/Ipratropium 3.0-0.5 MG/3 ML Neb Soln NEB SCH ×4 (01:26→14:20)
[2019-03-23] MEDS: guaiFENesin 100 MG/5 ML Soln 10 ML UD Cup PO SCH (05:14)
[2019-03-23] MEDS: Budesonide 0.5 MG/2 ML Neb Susp NEB SCH ×2 (05:16→20:15)
[2019-03-23] MEDS: Enoxaparin 40 MG/0.4 ML Syringe SUBCUT SCH (08:54)
[2019-03-23] MEDS: Azithromycin 250 MG Tab PO SCH (08:55)
[2019-03-23] MEDS ORDERED: Ipratropium 0.02% 0.5 MG/2.5 ML Neb Soln NEB SCH (14:00)
--- NOTE | 2019-03-23 14:26 | PCM.PN ---
- General Info Date of Service: 03/23/19 Subjective Update: Feeling better Did not sleep Hungry 03/21/19 Sat O2 trend 92-100 Slept with BiPAP - Patient Data Weight - Most Recent: 131.995 kg - Exam Quality Assessment: Supplemental Oxygen General: Alert, Oriented, Cooperative, Mild Distress HEENT: Pupils Equal, Pupils Reactive, EOMI, Mucous Membr. Moist/[place] Neck: Supple, Trachea Midline, No JVD, No Thyromegaly, +2 Carotid Pulse wo Bruit. No: Lymphadenopathy Lungs: Decreased Breath Sounds, Wheezing Cardiovascular: Regular Rate, Regular Rhythm. No: Murmurs, Gallops, Rubs GI/Abdominal Exam: Normal Bowel Sounds, Soft, Non-Tender, No Organomegaly Back Exam: Normal Inspection Extremities: Normal Inspection, Normal Range of Motion, Non-Tender Sepsis Event Note - Evaluation Sepsis Screening Result: No Definite Risk - Focused Exam Date Exam was Performed: 03/23/19 Time Exam was Performed: 14:19 - Problem List & Annotations (1) Severe asthma with exacerbation SNOMED Code(s): 239418157, 524534559 Code(s): J45.901 - UNSPECIFIED ASTHMA WITH (ACUTE) EXACERBATION Status: Acute Current Visit: Yes (2) Microcytic hypochromic anemia SNOMED Code(s): 80376536 Code(s): D50.9 - IRON DEFICIENCY ANEMIA, UNSPECIFIED Status: Acute Current Visit: Yes (3) Thrombocytosis SNOMED Code(s): 6781192 Code(s): D47.3 - ESSENTIAL (HEMORRHAGIC) THROMBOCYTHEMIA Status: Acute Current Visit: Yes (4) Hyperlipidemia SNOMED Code(s): 58466432 Code(s): E78.5 - HYPERLIPIDEMIA, UNSPECIFIED Status: Acute Priority: High Current Visit: No Qualifiers: Hyperlipidemia type: unspecified Qualified Code(s): E78.5 - Hyperlipidemia , unspecified (5) Hypoxemia SNOMED Code(s): 851814111 Code(s): R09.02 - HYPOXEMIA Status: Acute Priority: High Current Visit : No (6) Tachycardia SNOMED Code(s): 1637961 Code(s): R00.0 - TACHYCARDIA, UNSPECIFIED Status: Acute Priority: High Current Visit: No (7) Acute respiratory acidosis SNOMED Code(s): 67431730 Code(s): E87.2 - ACIDOSIS Status: Acute Current Visit: Yes (8) Metabolic acidosis, normal anion gap (NAG) SNOMED Code(s): 554525821 Code(s): E87.2 - ACIDOSIS Status: Acute Current Visit: Yes (9) Community acquired pneumonia SNOMED Code(s): 911356738 Code(s): J18.9 - PNEUMONIA, UNSPECIFIED ORGANISM Status: Acute Current Visit: Yes - Problem List Review Problem List Initiated/Reviewed/Updated: Yes - Plan Plan:: Severe asthma with exacerbation Community acquired pneumonia 2/2 Mycoplasma Hypoxemia Tachycardia Reactive Thrombocytosis URI symptoms for 1 week with worsening SOB Treated for PNA 1 month ago Came in to ED unable to speak more than 1 word at a time + SatO2 85% on RA No WBC count or fever + PaO2 60 Given 4 DuoNebs in ED + Solumedrol + Mg SO4 2g Mycoplasma + Peak flo2 150 pre and 180 post, expected 489 SatO2 trend >94% off BiPAP PLAN - Continue DuoNebs, Budesonide, Codeine + guaifenesin scheduled - Start azithromycin, continue levaquin - F/U RSV panel, strep pneumoniae - Scheduled solumedrol Microcytic hypochromic anemia On iron supplementation at home PLAN - Iron level - B12, folic acid, reticulocyte count Hyperlipidemia No in statin benefit age group PLAN - Dietary consult - Encourage lifestyle modifications Acute respiratory acidosis, resolved Metabolic acidosis, normal anion gap, improved PROPHYLAXIS DVT- Lovenox GI- not indicated CODE STATUS: FULL CODE DISPOSITION: Patient admitted to ICU on BiPAP and scheduled neb treatments, will keep in ICU as she is barely getting stable O2 sats.
[2019-03-23] MEDS ORDERED: Metoprolol Tartrate 5 MG/5 ML SDV IVPUSH ONE (14:40)
[2019-03-23] MEDS: methylPREDNISolone Sodium Succinate 125 MG/2 ML SDV IVPUSH SCH (14:50)
[2019-03-23] MEDS: Levalbuterol HCl 1.25 MG/3 ML Neb NEB SCH ×4 (16:09→22:14)
[2019-03-23] MEDS: Ipratropium 0.02% 0.5 MG/2.5 ML Neb Soln NEB SCH ×2 (18:01→22:14)
[2019-03-23] MEDS: Levofloxacin/Dextrose 5%-Water 750 MG in Premix Bag 1 BAG IV SCH (21:42)
[2019-03-24] MEDS: Levalbuterol HCl 1.25 MG/3 ML Neb NEB SCH ×8 (00:20→20:43)
[2019-03-24] MEDS: Ipratropium 0.02% 0.5 MG/2.5 ML Neb Soln NEB SCH ×4 (02:18→20:42)
[2019-03-24] MEDS: Budesonide 0.5 MG/2 ML Neb Susp NEB SCH ×2 (04:29→06:03)
[2019-03-24] MEDS ORDERED: Levalbuterol HCl 1.25 MG/3 ML Neb NEB PRN (07:13)
[2019-03-24] MEDS: Cyclobenzaprine 10 MG Tab PO SCH ×3 (08:38→20:40)
[2019-03-24] MEDS: Enoxaparin 40 MG/0.4 ML Syringe SUBCUT SCH (08:39)
[2019-03-24] MEDS: Azithromycin 250 MG Tab PO SCH (08:39)
--- NOTE | 2019-03-24 09:29 | CR ---
Chest: Portable view of the chest was obtained. Comparison: Prior chest x-ray of 01/10/19. Heart size and mediastinum are normal. Lungs are clear with no acute parenchymal change. Bony structures are grossly intact. Impression: 1. Nothing acute is appreciated on portable chest x-ray. Diagnostic code #1 This report was dictated in [place] Standard Time
[2019-03-24] MEDS: Codeine/guaiFENesin 100-10 MG/5 ML Syrup 5 ML Cup PO SCH ×2 (11:32→17:28)
--- NOTE | 2019-03-24 14:41 | PCM.PN ---
- General Info Date of Service: 03/24/19 Admission Dx/Problem (Free Text): Admission Diagnosis/Problem Admission Diagnosis/Problem Asthma with status asthmaticus Subjective Update: Patient doing better today. She is off oxygen and able to move around without dropping her oxygen saturation. Functional Status: Reports: Pain Controlled - Review of Systems General: Reports: No Symptoms HEENT: Reports: No Symptoms Pulmonary: Reports: Shortness of Breath, Wheezing Cardiovascular: Reports: No Symptoms Gastrointestinal: Reports: No Symptoms - Patient Data Vitals - Most Recent: Last Vital Signs Temp 96.5 F 03/24/19 08:00 Pulse 124 H 03/24/19 04:00 Resp 20 03/24/19 08:00 BP 142/98 H 03/24/19 08:00 Pulse Ox 96 03/24/19 13:35 Weight - Most Recent: 284 lb I&O - Last 24 Hours: Intake & Output 03/23/19 03/24/19 03/24/19 22:59 06:59 14:59 Intake Total 540 650 Output Total 600 Balance -60 650 Lab Results Last 24 Hours: Laboratory Results - last 24 hr 03/23/19 03/23/19 03/24/19 Range/Units 14:59 15:05 05:20 WBC 11.41 H (3.98-10.04) K/mm3 RBC 5.64 H (3.98-5.22) M/mm3 Hgb 10.7 L (11.2-15.7) gm/dl Hct 35.3 (34.1-44.9) % MCV 62.6 L (79.4-94.8) fl MCH 19.0 L (25.6-32.2) pg MCHC 30.3 L (32.2-35.5) g/dl RDW Std Deviation 46.6 H (36.4-46.3) fL Plt Count 505 H (182-369) K/mm3 MPV 10.6 (9.4-12.3) fl Neut % (Auto) 86.5 H (34.0-71.1) % Lymph % (Auto) 8.1 L (19.3-51.7) % [place] % (Auto) 5.0 (4.7-12.5) % Eos % (Auto) 0 L (0.7-5.8) Baso % (Auto) 0.0 L (0.1-1.2) % Neut # (Auto) 9.88 H (1.56-6.13) K/mm3 Lymph # (Auto) 0.92 L (1.18-3.74) K/mm3 [place] # (Auto) 0.57 H (0.24-0.36) K/mm3 Eos # (Auto) 0.00 L (0.04-0.36) K/mm3 Baso # (Auto) 0.00 L (0.01-0.08) K/mm3 Manual Slide Review Abnormal smear Puncture Site Lt radial ABG pH 7.42 (7.35-7.45) ABG pCO2 35.9 (35.0-45.0) mmHg ABG pO2 68.0 L (80.0-100.0) mmHg ABG HCO3 22.6 (22.0-26.0) meq/L ABG O2 Saturation 94.6 L (96.0-97.0) % ABG Base Excess -1.0 (-2-2.0) Paulie Test Positive VBG pH 7.31 (7.30-7.40) VBG pCO2 47.9 (41-51) mmHg VBG pO2 42.0 (40-80) mmHG VBG HCO3 23.3 (22-26) meq/L VBG O2 Saturation 72.1 VBG Base Excess -2.7 (-4.0-2.0) O2 Delivery Device Nasal cannula Bipap Oxygen Flow Rate 3.0 Sodium (136-145) mEq/L Potassium (3.5-5.1) mEq/L Chloride (98-107) mEq/L Carbon Dioxide (21-32) mEq/L Anion Gap (5-15) BUN (7-18) mg/dL Creatinine (0.55-1.02) mg/dL Est Cr Clr Drug Dosing mL/min Estimated GFR (MDRD) (>60) mL/min BUN/Creatinine Ratio (14-18) Glucose (74-106) mg/dL Calcium (8.5-10.1) mg/dL Phosphorus (2.6-4.7) mg/dL Magnesium (1.8-2.4) mg/dl 03/24/19 Range/Units 05:20 WBC (3.98-10.04) K/mm3 RBC (3.98-5.22) M/mm3 Hgb (11.2-15.7) gm/dl Hct (34.1-44.9) % MCV (79.4-94.8) fl MCH (25.6-32.2) pg MCHC (32.2-35.5) g/dl RDW Std Deviation (36.4-46.3) fL Plt Count (182-369) K/mm3 MPV (9.4-12.3) fl Neut % (Auto) (34.0-71.1) % Lymph % (Auto) (19.3-51.7) % [place] % (Auto) (4.7-12.5) % Eos % (Auto) (0.7-5.8) Baso % (Auto) (0.1-1.2) % Neut # (Auto) (1.56-6.13) K/mm3 Lymph # (Auto) (1.18-3.74) K/mm3 [place] # (Auto) (0.24-0.36) K/mm3 Eos # (Auto) (0.04-0.36) K/mm3 Baso # (Auto) (0.01-0.08) K/mm3 Manual Slide Review Puncture Site ABG pH (7.35-7.45) ABG pCO2 (35.0-45.0) mmHg ABG pO2 (80.0-100.0) mmHg ABG HCO3 (22.0-26.0) meq/L ABG O2 Saturation (96.0-97.0) % ABG Base Excess (-2-2.0) Paulie Test VBG pH (7.30-7.40) VBG pCO2 (41-51) mmHg VBG pO2 (40-80) mmHG VBG HCO3 (22-26) meq/L VBG O2 Saturation VBG Base Excess (-4.0-2.0) O2 Delivery Device Oxygen Flow Rate Sodium 140 (136-145) mEq/L Potassium 3.7 (3.5-5.1) mEq/L Chloride 104 (98-107) mEq/L Carbon Dioxide 23 (21-32) mEq/L Anion Gap 16.7 H (5-15) BUN 15 (7-18) mg/dL Creatinine 1.1 H (0.55-1.02) mg/dL Est Cr Clr Drug Dosing 64.84 mL/min Estimated GFR (MDRD) 57 (>60) mL/min BUN/Creatinine Ratio 13.6 L (14-18) Glucose 98 (74-106) mg/dL Calcium 9.5 (8.5-10.1) mg/dL Phosphorus 2.8 (2.6-4.7) mg/dL Magnesium 2.1 (1.8-2.4) mg/dl Nayan Results Last 24 Hours: Microbiology 03/23/19 18:50 Gram Stain - Final Sputum - Expectorated Sputum Culture - Preliminary 03/22/19 19:05 Quick Strep Confirmation Culture - Preliminary Throat Group A Streptococcus Rapid Screen - Final NEGATIVE STREP A SCREEN REFERENCE RANGE: NEGATIVE Med Orders - Current: Current Medications Budesonide (Pulmicort) 0.5 mg NEB BIDRT [facility] Last Admin: 03/24/19 06:03 Dose: Not Given Cyclobenzaprine HCl (Flexeril) 10 mg PO TID [facility] Last Admin: 03/24/19 08:38 Dose: 10 mg Enoxaparin Sodium (Lovenox) 40 mg SUBCUT DAILY [facility] Last Admin: 03/24/19 08:39 Dose: 40 mg Guaifenesin/Codeine Phosphate (Robitussin Ac) 5 ml PO Q6H [facility] Last Admin: 03/24/19 11:32 Dose: 5 ml Levofloxacin/Dextrose 750 mg/ (Premix) 150 mls @ 100 mls/hr IV Q24H [facility] Stop: 03/28/19 21:00 Last Admin: 03/23/19 21:42 Dose: 100 mls/hr Ipratropium [place] (Atrovent) 0.5 mg NEB Q8HRRT [facility] Last Admin: 03/24/19 13:33 Dose: 0.5 mg Levalbuterol HCl (Xopenex) 1.25 mg NEB Q2H PRN PRN Reason: Wheezing Levalbuterol HCl (Xopenex) 1.25 mg NEB Q4HRRT [facility] Last Admin: 03/24/19 13:33 Dose: 1.25 mg Methylprednisolone Sodium Succinate (Solu-Medrol) 125 mg IVPUSH Q24H [facility] Last Admin: 03/23/19 14:50 Dose: 125 mg Sodium Chloride (Saline Flush) 10 ml FLUSH ASDIRECTED PRN PRN Reason: Keep Vein Open Last Admin: 03/22/19 17:47 Dose: 10 ml Discontinued Medications Albuterol (Proventil Neb Soln) 7.5 mg NEB ONETIME ONE Stop: 03/22/19 17:52 Last Admin: 03/22/19 18:00 Dose: 7.5 mg Albuterol/Ipratropium (Duoneb 3.0-0.5 Mg/3 Ml) 3 ml NEB ONETIME ONE Stop: 03/22/19 17:28 Last Admin: 03/22/19 17:34 Dose: Not Given Albuterol/Ipratropium (Duoneb 3.0-0.5 Mg/3 Ml) Confirm Administered Dose 3 ml .ROUTE .STK-MED ONE Stop: 03/22/19 17:31 Last Admin: 03/22/19 17:34 Dose: 3 ml Albuterol/Ipratropium (Duoneb 3.0-0.5 Mg/3 Ml) 3 ml NEB ONETIME ONE Stop: 03/22/19 17:51 Last Admin: 03/22/19 17:52 Dose: 3 ml Albuterol/Ipratropium (Duoneb 3.0-0.5 Mg/3 Ml) 3 ml NEB Q4HRRT [facility] Last Admin: 03/23/19 14:20 Dose: 3 ml Azithromycin (Zithromax) 500 mg PO DAILY [facility] Last Admin: 03/24/19 08:39 Dose: 500 mg Guaifenesin (Robitussin) 200 mg PO Q8H [facility] Last Admin: 03/23/19 05:14 Dose: 200 mg Magnesium Sulfate 2 gm/ Premix 50 mls @ 50 mls/hr IV ONETIME ONE Stop: 03/22/19 18:29 Last Admin: 03/22/19 17:50 Dose: 50 mls/hr Sodium Chloride (Normal Saline) 1,000 mls @ 500 mls/hr IV ASDIRECTED [facility] Last Admin: 03/22/19 17:54 Dose: 500 mls/hr Levofloxacin/Dextrose 750 mg/ (Premix) 150 mls @ 100 mls/hr IV ONETIME ONE Stop: 03/22/19 20:02 Last Admin: 03/22/19 18:58 Dose: 100 mls/hr Levofloxacin/Dextrose 750 mg/ (Premix) 150 mls @ 100 mls/hr IV Q24H [facility] Last Admin: 03/22/19 21:13 Dose: Not Given Magnesium Sulfate 2 gm/ Premix 50 mls @ 25 mls/hr IV ONETIME ONE Stop: 03/22/19 21:59 Last Admin: 03/22/19 20:22 Dose: 25 mls/hr Ipratropium [place] (Atrovent) 0.5 mg NEB Q8HRRT [facility] Last Admin: 03/23/19 14:19 Dose: 0.5 mg Ipratropium [place] (Atrovent) 0.5 mg NEB Q4HRRT [facility] Last Admin: 03/24/19 06:54 Dose: 0.5 mg Levalbuterol HCl (Xopenex) 1.25 mg NEB Q2H [facility] Last Admin: 03/24/19 06:54 Dose: 1.25 mg Methylprednisolone Sodium Succinate (Solu-Medrol) 125 mg IVPUSH ONETIME ONE Stop: 03/22/19 17:29 Last Admin: 03/22/19 17:46 Dose: 125 mg Metoprolol Tartrate (Lopressor) 5 mg IVPUSH ONETIME ONE Stop: 03/23/19 14:41 Last Admin: 03/23/19 16:09 Dose: Not Given Morphine Sulfate (Morphine) 1 mg IVPUSH Q2H PRN PRN Reason: Pain (severe 7-10) Stop: 03/23/19 18:37 Oseltamivir Phosphate (Tamiflu) 75 mg PO ONETIME ONE Stop: 03/22/19 18:35 Last Admin: 03/22/19 19:00 Dose: 75 mg - Exam Quality Assessment: No: Supplemental Oxygen General: Alert, Oriented HEENT: Pupils Equal, Pupils Reactive, EOMI, Mucous Membr. Moist/[place] Neck: Supple Lungs: Clear to Auscultation, Normal Respiratory Effort, Decreased Breath Sounds Cardiovascular: Regular Rate, Regular Rhythm GI/Abdominal Exam: Normal Bowel Sounds, Soft, Non-Tender, No Organomegaly, No Distention, No Abnormal Bruit, No Mass, Pelvis Stable Extremities: Normal Inspection, Normal Range of Motion, Non-Tender, No Pedal Edema, Normal Capillary Refill Skin: Warm, Dry, Intact Psy/Mental Status: Alert, Normal Affect, Normal Mood Sepsis Event Note - Evaluation Sepsis Screening Result: No Definite Risk - Focused Exam Vital Signs: Vital Signs Temp Pulse Resp BP BP Pulse Ox Pulse Ox 03/24/19 13:35 03/24/19 09:44 03/24/19 08:00 96.5 F 20 142/98 H 96 03/24/19 06:56 96 03/24/19 06:00 18 97 03/24/19 05:45 24 H 98 03/24/19 05:30 23 H 97 03/24/19 05:15 17 97 03/24/19 05:00 22 H 94 L 03/24/19 04:45 21 H 99 03/24/19 04:30 16 99 94 L 03/24/19 04:26 18 138/99 H 95 03/24/19 04:24 15 141/113 H 97 03/24/19 04:23 20 95 03/24/19 04:15 19 96 03/24/19 04:00 124 H 20 138/99 H 100 03/24/19 03:45 19 96 03/24/19 03:30 20 97 03/24/19 03:15 19 96 03/24/19 03:00 24 H 95 03/24/19 02:45 21 H 95 Pulse Ox 03/24/19 13:35 96 03/24/19 09:44 96 03/24/19 08:00 03/24/19 06:56 03/24/19 06:00 03/24/19 05:45 03/24/19 05:30 03/24/19 05:15 03/24/19 05:00 03/24/19 04:45 03/24/19 04:30 03/24/19 04:26 03/24/19 04:24 03/24/19 04:23 03/24/19 04:15 03/24/19 04:00 03/24/19 03:45 03/24/19 03:30 03/24/19 03:15 03/24/19 03:00 03/24/19 02:45 Date Exam was Performed: 03/24/19 Time Exam was Performed: 18:12 - Problem List Review Problem List Initiated/Reviewed/Updated: Yes - My Orders Last 24 Hours: My Active Orders 03/24/19 10:51 Patient Status [ADT] Routine - Plan Plan:: Severe asthma with exacerbation Community acquired pneumonia 2/2 Mycoplasma Hypoxemia -resolved Tachycardia -secondary to beta agonist Reactive Thrombocytosis URI symptoms for 1 week with worsening SOB Treated for PNA 1 month ago Came in to ED unable to speak more than 1 word at a time + SatO2 85% on RA No WBC count or fever + PaO2 60 Given 4 DuoNebs in ED + Solumedrol + Mg SO4 2g Mycoplasma + on last 3 visits. This is likely not clinically significant. Peak flo2 150 pre and 180 post, expected 489 SatO2 trend >94% off BiPAP PLAN - Continue DuoNebs, Codeine + guaifenesin scheduled -Stop azithromycin, continue levaquin - F/U RSV panel, strep pneumoniae -Change Solumedrol to prednisone Microcytic hypochromic anemia On iron supplementation at home PLAN - Iron level - B12, folic acid, reticulocyte count Hyperlipidemia No in statin benefit age group PLAN - Dietary consult - Encourage lifestyle modifications Acute respiratory acidosis, resolved Metabolic acidosis, normal anion gap, improved PROPHYLAXIS DVT- Lovenox GI- not indicated CODE STATUS: FULL CODE DISPOSITION: Patient admitted to ICU on BiPAP and scheduled neb treatments, will keep in ICU as she is barely getting stable O2 sats.
[2019-03-24] MEDS: methylPREDNISolone Sodium Succinate 125 MG/2 ML SDV IVPUSH SCH (16:23)
[2019-03-24] MEDS: Levofloxacin/Dextrose 5%-Water 750 MG in Premix Bag 1 BAG IV SCH (20:40)
[2019-03-25] MEDS: Levalbuterol HCl 1.25 MG/3 ML Neb NEB SCH ×7 (00:10→21:30)
[2019-03-25] MEDS: Codeine/guaiFENesin 100-10 MG/5 ML Syrup 5 ML Cup PO SCH ×4 (00:37→18:19)
[2019-03-25] MEDS: Ipratropium 0.02% 0.5 MG/2.5 ML Neb Soln NEB SCH ×3 (06:15→21:30)
[2019-03-25] MEDS: predniSONE 20 MG Tab PO SCH (06:36)
[2019-03-25] MEDS: Enoxaparin 40 MG/0.4 ML Syringe SUBCUT SCH (09:38)
[2019-03-25] MEDS: Cyclobenzaprine 10 MG Tab PO SCH ×3 (09:38→20:19)
--- NOTE | 2019-03-25 11:46 | CR ---
Chest: PA and lateral views of the chest were obtained. Comparison: Prior chest x-ray of 03/22/19. Heart size and mediastinum are normal. Lungs are clear. Bony structures are unremarkable. Impression: 1. Nothing acute is seen on two-view chest x-ray. Diagnostic code #1 This report was dictated in [place] Standard Time
--- NOTE | 2019-03-25 12:24 | PCM.PN ---
- General Info Date of Service: 03/25/19 Admission Dx/Problem (Free Text): Admission Diagnosis/Problem Admission Diagnosis/Problem Asthma with status asthmaticus Subjective Update: Patient is back on 3 L nasal cannula. Patient states that she slept well and when she woke up her oxygen saturations were in the 80s. Patient has been on 3 L nasal cannula since then. She does states she is feeling well and generally improved. - Review of Systems General: Reports: No Symptoms HEENT: Reports: No Symptoms Pulmonary: Reports: Cough Cardiovascular: Reports: No Symptoms Gastrointestinal: Reports: No Symptoms - Patient Data Vitals - Most Recent: Last Vital Signs Temp 98.2 F 03/25/19 08:17 Pulse 80 03/25/19 08:17 Resp 12 03/25/19 08:17 BP 146/96 H 03/25/19 08:17 Pulse Ox 91 L 03/25/19 10:16 Weight - Most Recent: 283 lb 12.8 oz I&O - Last 24 Hours: Intake & Output 03/24/19 03/25/19 03/25/19 22:59 06:59 14:59 Intake Total 360 750 240 Balance 360 750 240 Imaging Impressions - Last 24 Hours: Chest x-ray shows no acute findings. Nayan Results Last 24 Hours: Microbiology 03/23/19 18:50 Gram Stain - Final Sputum - Expectorated Sputum Culture - Preliminary 03/22/19 19:05 Quick Strep Confirmation Culture - Preliminary Throat Group A Streptococcus Rapid Screen - Final NEGATIVE STREP A SCREEN REFERENCE RANGE: NEGATIVE Med Orders - Current: Current Medications Cyclobenzaprine HCl (Flexeril) 10 mg PO TID [facility] Last Admin: 03/25/19 09:38 Dose: 10 mg Enoxaparin Sodium (Lovenox) 40 mg SUBCUT DAILY [facility] Last Admin: 03/25/19 09:38 Dose: 40 mg Guaifenesin/Codeine Phosphate (Robitussin Ac) 5 ml PO Q6H [facility] Last Admin: 03/25/19 06:36 Dose: 5 ml Ipratropium [place] (Atrovent) 0.5 mg NEB Q8HRRT [facility] Last Admin: 03/25/19 06:15 Dose: 0.5 mg Levalbuterol HCl (Xopenex) 1.25 mg NEB Q2H PRN PRN Reason: Wheezing Levalbuterol HCl (Xopenex) 1.25 mg NEB Q4HRRT [facility] Last Admin: 03/25/19 09:54 Dose: 1.25 mg Levofloxacin (Levaquin) 750 mg PO 2100 [facility] Stop: 03/27/19 21:01 Prednisone (Prednisone) 40 mg PO WITHBREAKFAST [facility] Last Admin: 03/25/19 06:36 Dose: 40 mg Sodium Chloride (Saline Flush) 10 ml FLUSH ASDIRECTED PRN PRN Reason: Keep Vein Open Last Admin: 03/22/19 17:47 Dose: 10 ml Discontinued Medications Albuterol (Proventil Neb Soln) 7.5 mg NEB ONETIME ONE Stop: 03/22/19 17:52 Last Admin: 03/22/19 18:00 Dose: 7.5 mg Albuterol/Ipratropium (Duoneb 3.0-0.5 Mg/3 Ml) 3 ml NEB ONETIME ONE Stop: 03/22/19 17:28 Last Admin: 03/22/19 17:34 Dose: Not Given Albuterol/Ipratropium (Duoneb 3.0-0.5 Mg/3 Ml) Confirm Administered Dose 3 ml .ROUTE .STK-MED ONE Stop: 03/22/19 17:31 Last Admin: 03/22/19 17:34 Dose: 3 ml Albuterol/Ipratropium (Duoneb 3.0-0.5 Mg/3 Ml) 3 ml NEB ONETIME ONE Stop: 03/22/19 17:51 Last Admin: 03/22/19 17:52 Dose: 3 ml Albuterol/Ipratropium (Duoneb 3.0-0.5 Mg/3 Ml) 3 ml NEB Q4HRRT [facility] Last Admin: 03/23/19 14:20 Dose: 3 ml Azithromycin (Zithromax) 500 mg PO DAILY [facility] Last Admin: 03/24/19 08:39 Dose: 500 mg Budesonide (Pulmicort) 0.5 mg NEB BIDRT [facility] Last Admin: 03/24/19 06:03 Dose: Not Given Guaifenesin (Robitussin) 200 mg PO Q8H [facility] Last Admin: 03/23/19 05:14 Dose: 200 mg Magnesium Sulfate 2 gm/ Premix 50 mls @ 50 mls/hr IV ONETIME ONE Stop: 03/22/19 18:29 Last Admin: 03/22/19 17:50 Dose: 50 mls/hr Sodium Chloride (Normal Saline) 1,000 mls @ 500 mls/hr IV ASDIRECTED [facility] Last Admin: 03/22/19 17:54 Dose: 500 mls/hr Levofloxacin/Dextrose 750 mg/ (Premix) 150 mls @ 100 mls/hr IV ONETIME ONE Stop: 03/22/19 20:02 Last Admin: 03/22/19 18:58 Dose: 100 mls/hr Levofloxacin/Dextrose 750 mg/ (Premix) 150 mls @ 100 mls/hr IV Q24H [facility] Last Admin: 03/22/19 21:13 Dose: Not Given Magnesium Sulfate 2 gm/ Premix 50 mls @ 25 mls/hr IV ONETIME ONE Stop: 03/22/19 21:59 Last Admin: 03/22/19 20:22 Dose: 25 mls/hr Levofloxacin/Dextrose 750 mg/ (Premix) 150 mls @ 100 mls/hr IV Q24H [facility] Stop: 03/28/19 21:00 Last Admin: 03/24/19 20:40 Dose: 100 mls/hr Ipratropium [place] (Atrovent) 0.5 mg NEB Q8HRRT [facility] Last Admin: 03/23/19 14:19 Dose: 0.5 mg Ipratropium [place] (Atrovent) 0.5 mg NEB Q4HRRT [facility] Last Admin: 03/24/19 06:54 Dose: 0.5 mg Levalbuterol HCl (Xopenex) 1.25 mg NEB Q2H [facility] Last Admin: 03/24/19 06:54 Dose: 1.25 mg Methylprednisolone Sodium Succinate (Solu-Medrol) 125 mg IVPUSH ONETIME ONE Stop: 03/22/19 17:29 Last Admin: 03/22/19 17:46 Dose: 125 mg Methylprednisolone Sodium Succinate (Solu-Medrol) 125 mg IVPUSH Q24H [facility] Last Admin: 03/24/19 16:23 Dose: 125 mg Metoprolol Tartrate (Lopressor) 5 mg IVPUSH ONETIME ONE Stop: 03/23/19 14:41 Last Admin: 03/23/19 16:09 Dose: Not Given Morphine Sulfate (Morphine) 1 mg IVPUSH Q2H PRN PRN Reason: Pain (severe 7-10) Stop: 03/23/19 18:37 Oseltamivir Phosphate (Tamiflu) 75 mg PO ONETIME ONE Stop: 03/22/19 18:35 Last Admin: 03/22/19 19:00 Dose: 75 mg - Exam Quality Assessment: Supplemental Oxygen General: Alert, Oriented HEENT: Pupils Equal, EOMI, Mucous Membr. Moist/[place] Neck: Supple Lungs: Decreased Breath Sounds, Wheezing Cardiovascular: Regular Rate, Regular Rhythm GI/Abdominal Exam: Normal Bowel Sounds, Soft, Non-Tender, No Distention Extremities: Normal Inspection, Normal Range of Motion, Non-Tender, No Pedal Edema Skin: Warm, Dry, Intact Psy/Mental Status: Alert, Normal Affect, Normal Mood Sepsis Event Note - Evaluation Sepsis Screening Result: No Definite Risk - Focused Exam Vital Signs: Vital Signs Temp Pulse Resp BP Pulse Ox Pulse Ox 03/25/19 10:16 91 L 03/25/19 09:54 90 L 03/25/19 08:17 98.2 F 80 12 146/96 H 91 L 03/25/19 06:46 98.1 F 73 20 136/78 92 L 03/25/19 06:15 92 L 03/25/19 02:30 92 L Date Exam was Performed: 03/25/19 Time Exam was Performed: 18:04 - Problem List Review Problem List Initiated/Reviewed/Updated: Yes - My Orders Last 24 Hours: My Active Orders 03/25/19 07:00 predniSONE 40 mg PO WITHBREAKFAST 03/25/19 21:00 levoFLOXacin [Levaquin] 750 mg PO 2100 - Plan Plan:: Severe asthma with exacerbation Community acquired pneumonia 2/2 Mycoplasma Hypoxemia Tachycardia -secondary to beta agonist Reactive Thrombocytosis URI symptoms for 1 week with worsening SOB Treated for PNA 1 month ago Came in to ED unable to speak more than 1 word at a time + SatO2 85% on RA No WBC count or fever + PaO2 60 Given 4 DuoNebs in ED + Solumedrol + Mg SO4 2g Mycoplasma + on last 3 visits. This is likely not clinically significant. Peak flo2 150 pre and 180 post, expected 489 SatO2 trend >94% off BiPAP PLAN - Continue DuoNebs, Codeine + guaifenesin scheduled -Stop azithromycin, continue levaquin - F/U RSV panel, strep pneumoniae -Change Solumedrol to prednisone -Add EZ Pap to nebs. -Encourage incentive spirometry and flutter valve Microcytic hypochromic anemia On iron supplementation at home PLAN - Iron level - B12, folic acid, reticulocyte count Hyperlipidemia No in statin benefit age group PLAN - Dietary consult - Encourage lifestyle modifications Acute respiratory acidosis, resolved Metabolic acidosis, normal anion gap, improved PROPHYLAXIS DVT- Lovenox GI- not indicated CODE STATUS: FULL CODE DISPOSITION: Patient admitted to ICU on BiPAP and scheduled neb treatments. Patient had worsening hypoxemia last night likely secondary to atelectasis. Likely 1-2 more days before discharge.
[2019-03-25] MEDS ORDERED: Levofloxacin 750 MG Tab PO SCH (21:00)
[2019-03-26] MEDS: Codeine/guaiFENesin 100-10 MG/5 ML Syrup 5 ML Cup PO SCH ×3 (00:53→12:37)
[2019-03-26] MEDS: Levalbuterol HCl 1.25 MG/3 ML Neb NEB SCH ×3 (01:35→09:00)
[2019-03-26] MEDS: Ipratropium 0.02% 0.5 MG/2.5 ML Neb Soln NEB SCH (05:42)
[2019-03-26] MEDS: predniSONE 20 MG Tab PO SCH (06:12)
[2019-03-26] MEDS ORDERED: Potassium Chloride 20 MEQ Tab.ER PO ONE (08:18)
[2019-03-26] MEDS: Enoxaparin 40 MG/0.4 ML Syringe SUBCUT SCH (08:33)
[2019-03-26] MEDS: Cyclobenzaprine 10 MG Tab PO SCH (08:33)
--- NOTE | 2019-03-26 12:11 | PCM.DCSUM1 ---
Discharge Summary - Hospital Course HPI Initial Comments: This is a 33 year old female with past medical history of asthma who comes to the ED for acutely worsening shortness of breath. As per patient she has been having worsening cough and shortness of breath not responsive to PRN albuterol. Once she noticed her shortness of breath was not getting any better to the point that she was unable to catch her breath or speak, she decided to come in to the ED for further evaluation. Diagnosis: Stroke: No - Discharge Data Discharge Date: 03/26/19 Discharge Disposition: Home, Self-Care 01 Condition: Good - Referral to Home Health Primary Care Physician: Brice Christie MD - Patient Summary/Data Hospital Course: Severe asthma with exacerbation Community acquired pneumonia 2/2 Mycoplasma Hypoxemia Tachycardia -secondary to beta agonist Reactive Thrombocytosis URI symptoms for 1 week with worsening SOB Treated for PNA 1 month ago Came in to ED unable to speak more than 1 word at a time + SatO2 85% on RA No WBC count or fever + PaO2 60 Given 4 DuoNebs in ED + Solumedrol + Mg SO4 2g Mycoplasma IgM+ on last 3 visits. This is likely not clinically significant. Peak flo2 150 pre and 180 post, expected 489 SatO2 trend >94% off BiPAP PLAN - DuoNebs, Codeine + guaifenesin scheduled - Received azithromycin and levaquin - RSV panel, strep pneumoniae, and Mycoplasma PCR all neg -Change Solumedrol to prednisone and send home on lor -Encourage incentive spirometry and flutter valve Microcytic hypochromic anemia On iron supplementation at home Hyperlipidemia No in statin benefit age group PLAN - Dietary consult - Encourage lifestyle modifications Acute respiratory acidosis, resolved Metabolic acidosis, normal anion gap, improved - Patient Instructions Diet: Usual Diet as Tolerated Activity: As Tolerated Driving: May Drive Today Showering/Bathing: May Shower Other/Special Instructions: Finish tapering dose of prednisone. Follow-up with primary care provider next week. Follow-up with ground wirer in a week or 2. - Discharge Plan *PRESCRIPTION DRUG MONITORING PROGRAM REVIEWED*: No *COPY OF PRESCRIPTION DRUG MONITORING REPORT IN PATIENT MARCOS: No Prescriptions/Med Rec: Codeine/guaiFENesin [Robitussin AC] 5 ml PO Q6H #120 ml predniSONE [Prednisone] See Taper PO DAILY #30 tab.ds.pk Home Medications: Home Meds Cetirizine [ZyrTEC] 10 mg PO DAILY 09/15/17 [History] Ferrous Sulfate 325 mg PO DAILY 09/15/17 [History] raNITIdine HCl [Zantac] 150 mg PO BID PRN 09/15/17 [History] Albuterol Sulfate [Proair Hfa] 2 puff INH Q4H PRN #2 hfa.aer.ad 09/18/17 [Rx] Budesonide/Formoterol Fumarate [Symbicort 160-4.5 Mcg Inhaler] 2 puff INH BID # 1 hfa.aer.ad 09/18/17 [Rx] Codeine/guaiFENesin [Robitussin AC] 5 ml PO Q6H #120 ml 03/26/19 [Rx] Cyclobenzaprine [Flexeril] 10 mg PO TID #0 tablet 03/26/19 [Rx] Cyclobenzaprine [Flexeril] 10 mg PO TID PRN 03/26/19 [History] predniSONE [Prednisone] See Taper PO DAILY #30 tab.ds.pk 03/26/19 [Rx] Patient Handouts: Asthma, Adult, Sepsis, Adult, Asthma Attack Prevention, Adult Referrals: Brice Christie MD [Primary Care Provider] - (Please call clinic on to make follow-up appointment with next week.) - Discharge Summary/Plan Comment DC Time >30 min.: Yes Discharge Summary/Plan Comment: Prednisone tapering dose Not sending home on antibiotics Follow-up with primary care provider and ground wirer. - General Info Date of Service: 03/26/19 Admission Dx/Problem (Free Text: Admission Diagnosis/Problem Admission Diagnosis/Problem Asthma with status asthmaticus Subjective Update: Doing much better today. She is completely off oxygen and states that the incident spirometry and flutter valve are helping. Functional Status: Reports: Pain Controlled - Review of Systems General: Reports: No Symptoms HEENT: Reports: No Symptoms Pulmonary: Reports: No Symptoms Cardiovascular: Reports: No Symptoms Gastrointestinal: Reports: No Symptoms Musculoskeletal: Reports: No Symptoms - Patient Data Vitals - Most Recent: Last Vital Signs Temp 98.4 F 03/26/19 08:12 Pulse 82 03/26/19 08:12 Resp 16 03/26/19 08:12 BP 108/50 L 03/26/19 08:12 Pulse Ox 95 03/26/19 09:00 Weight - Most Recent: 286 lb 12.8 oz I&O - Last 24 hours: Intake & Output 03/25/19 03/26/19 03/26/19 22:59 06:59 14:59 Intake Total 1720 400 240 Output Total 300 600 Balance 1420 -200 240 Lab Results - Last 24 hrs: Laboratory Results - last 24 hr 03/22/19 03/23/19 03/24/19 Range/Units 19:10 14:20 05:20 WBC (3.98-10.04) K/mm3 RBC (3.98-5.22) M/mm3 Hgb (11.2-15.7) gm/dl Hct (34.1-44.9) % MCV (79.4-94.8) fl MCH (25.6-32.2) pg MCHC (32.2-35.5) g/dl RDW Std Deviation (36.4-46.3) fL Plt Count (182-369) K/mm3 MPV (9.4-12.3) fl Neut % (Auto) (34.0-71.1) % Lymph % (Auto) (19.3-51.7) % Garrard % (Auto) (4.7-12.5) % Eos % (Auto) (0.7-5.8) Baso % (Auto) (0.1-1.2) % Neut # (Auto) (1.56-6.13) K/mm3 Lymph # (Auto) (1.18-3.74) K/mm3 Garrard # (Auto) (0.24-0.36) K/mm3 Eos # (Auto) (0.04-0.36) K/mm3 Baso # (Auto) (0.01-0.08) K/mm3 Manual Slide Review Sodium (136-145) mEq/L Potassium (3.5-5.1) mEq/L Chloride (98-107) mEq/L Carbon Dioxide (21-32) mEq/L Anion Gap (5-15) BUN (7-18) mg/dL Creatinine (0.55-1.02) mg/dL Est Cr Clr Drug Dosing mL/min Estimated GFR (MDRD) (>60) mL/min BUN/Creatinine Ratio (14-18) Glucose (74-106) mg/dL Calcium (8.5-10.1) mg/dL Magnesium (1.8-2.4) mg/dl Total Bilirubin (0.2-1.0) mg/dL AST (15-37) U/L ALT (14-59) U/L Alkaline Phosphatase (46-116) U/L Total Protein (6.4-8.2) g/dl Albumin (3.4-5.0) g/dl Globulin gm/dL Albumin/Globulin Ratio (1-2) Procalcitonin <0.05 <0.05 (<0.10) ng/mL Adenovirus (PCR) Not detected (Not Detected) B. pertussis DNA (PCR) Not detected (Not Detected) B.parapertussis DNA PCR Not detected (Not Detected) C. pneumoniae DNA (PCR) Not detected (Not Detected) Coronavirus (PCR) Not detected (Not Detected) Human Metapneumovir PCR Not detected (Not Detected) Influenza A (RT-PCR) Not detected (Not Detected) Influenza B (RT-PCR) Not detected (Not Detected) M. pneumoniae (PCR) Not detected (Not Detected) Parainfluen 1,2,3,4 PCR Not detected (Not Detected) RSV (PCR) Not detected (Not Detected) Entero/Rhino (PCR) Not detected (Not Detected) 03/26/19 03/26/19 Range/Units 04:37 04:37 WBC 11.64 H (3.98-10.04) K/mm3 RBC 5.18 (3.98-5.22) M/mm3 Hgb 9.8 L (11.2-15.7) gm/dl Hct 32.6 L (34.1-44.9) % MCV 62.9 L (79.4-94.8) fl MCH 18.9 L (25.6-32.2) pg MCHC 30.1 L (32.2-35.5) g/dl RDW Std Deviation 45.2 (36.4-46.3) fL Plt Count 437 H (182-369) K/mm3 MPV 10.9 (9.4-12.3) fl Neut % (Auto) 54.0 (34.0-71.1) % Lymph % (Auto) 39.7 (19.3-51.7) % Garrard % (Auto) 5.8 (4.7-12.5) % Eos % (Auto) 0.1 L (0.7-5.8) Baso % (Auto) 0.1 (0.1-1.2) % Neut # (Auto) 6.29 H (1.56-6.13) K/mm3 Lymph # (Auto) 4.62 H (1.18-3.74) K/mm3 Garrard # (Auto) 0.67 H (0.24-0.36) K/mm3 Eos # (Auto) 0.01 L (0.04-0.36) K/mm3 Baso # (Auto) 0.01 (0.01-0.08) K/mm3 Manual Slide Review Abnormal smear Sodium 140 (136-145) mEq/L Potassium 3.2 L (3.5-5.1) mEq/L Chloride 104 (98-107) mEq/L Carbon Dioxide 25 (21-32) mEq/L Anion Gap 14.2 (5-15) BUN 19 H (7-18) mg/dL Creatinine 1.0 (0.55-1.02) mg/dL Est Cr Clr Drug Dosing 71.33 mL/min Estimated GFR (MDRD) > 60 (>60) mL/min BUN/Creatinine Ratio 19.0 H (14-18) Glucose 83 (74-106) mg/dL Calcium 8.6 (8.5-10.1) mg/dL Magnesium 2.1 (1.8-2.4) mg/dl Total Bilirubin 0.2 (0.2-1.0) mg/dL AST 11 L (15-37) U/L ALT 20 (14-59) U/L Alkaline Phosphatase 42 L (46-116) U/L Total Protein 6.4 (6.4-8.2) g/dl Albumin 3.3 L (3.4-5.0) g/dl Globulin 3.1 gm/dL Albumin/Globulin Ratio 1.1 (1-2) Procalcitonin (<0.10) ng/mL Adenovirus (PCR) (Not Detected) B. pertussis DNA (PCR) (Not Detected) B.parapertussis DNA PCR (Not Detected) C. pneumoniae DNA (PCR) (Not Detected) Coronavirus (PCR) (Not Detected) Human Metapneumovir PCR (Not Detected) Influenza A (RT-PCR) (Not Detected) Influenza B (RT-PCR) (Not Detected) M. pneumoniae (PCR) (Not Detected) Parainfluen 1,2,3,4 PCR (Not Detected) RSV (PCR) (Not Detected) Entero/Rhino (PCR) (Not Detected) EDILBERTO Results - Last 24 hrs: Microbiology 03/23/19 18:50 Gram Stain - Final Sputum - Expectorated Sputum Culture - Preliminary 03/23/19 10:23 Streptococcus pneumoniae Antigen (M - Final Urine 03/22/19 19:05 Quick Strep Confirmation Culture - Final Throat Beta Streptococcus Group F Group A Streptococcus Rapid Screen - Final NEGATIVE STREP A SCREEN REFERENCE RANGE: NEGATIVE Med Orders - Current: Current Medications Cyclobenzaprine HCl (Flexeril) 10 mg PO TID [facility] Last Admin: 03/26/19 08:33 Dose: 10 mg Enoxaparin Sodium (Lovenox) 40 mg SUBCUT DAILY [facility] Last Admin: 03/26/19 08:33 Dose: 40 mg Guaifenesin/Codeine Phosphate (Robitussin Ac) 5 ml PO Q6H [facility] Last Admin: 03/26/19 06:13 Dose: 5 ml Ipratropium [place] (Atrovent) 0.5 mg NEB Q8HRRT [facility] Last Admin: 03/26/19 05:42 Dose: 0.5 mg Levalbuterol HCl (Xopenex) 1.25 mg NEB Q2H PRN PRN Reason: Wheezing Levalbuterol HCl (Xopenex) 1.25 mg NEB Q4HRRT [facility] Last Admin: 03/26/19 09:00 Dose: 1.25 mg Levofloxacin (Levaquin) 750 mg PO 2100 [facility] Stop: 03/27/19 21:01 Last Admin: 03/25/19 20:19 Dose: 750 mg Prednisone (Prednisone) 40 mg PO WITHBREAKFAST [facility] Last Admin: 03/26/19 06:12 Dose: 40 mg Sodium Chloride (Saline Flush) 10 ml FLUSH ASDIRECTED PRN PRN Reason: Keep Vein Open Last Admin: 03/22/19 17:47 Dose: 10 ml Discontinued Medications Albuterol (Proventil Neb Soln) 7.5 mg NEB ONETIME ONE Stop: 03/22/19 17:52 Last Admin: 03/22/19 18:00 Dose: 7.5 mg Albuterol/Ipratropium (Duoneb 3.0-0.5 Mg/3 Ml) 3 ml NEB ONETIME ONE Stop: 03/22/19 17:28 Last Admin: 03/22/19 17:34 Dose: Not Given Albuterol/Ipratropium (Duoneb 3.0-0.5 Mg/3 Ml) Confirm Administered Dose 3 ml .ROUTE .STK-MED ONE Stop: 03/22/19 17:31 Last Admin: 03/22/19 17:34 Dose: 3 ml Albuterol/Ipratropium (Duoneb 3.0-0.5 Mg/3 Ml) 3 ml NEB ONETIME ONE Stop: 03/22/19 17:51 Last Admin: 03/22/19 17:52 Dose: 3 ml Albuterol/Ipratropium (Duoneb 3.0-0.5 Mg/3 Ml) 3 ml NEB Q4HRRT [facility] Last Admin: 03/23/19 14:20 Dose: 3 ml Azithromycin (Zithromax) 500 mg PO DAILY [facility] Last Admin: 03/24/19 08:39 Dose: 500 mg Budesonide (Pulmicort) 0.5 mg NEB BIDRT [facility] Last Admin: 03/24/19 06:03 Dose: Not Given Guaifenesin (Robitussin) 200 mg PO Q8H [facility] Last Admin: 03/23/19 05:14 Dose: 200 mg Magnesium Sulfate 2 gm/ Premix 50 mls @ 50 mls/hr IV ONETIME ONE Stop: 03/22/19 18:29 Last Admin: 03/22/19 17:50 Dose: 50 mls/hr Sodium Chloride (Normal Saline) 1,000 mls @ 500 mls/hr IV ASDIRECTED [facility] Last Admin: 03/22/19 17:54 Dose: 500 mls/hr Levofloxacin/Dextrose 750 mg/ (Premix) 150 mls @ 100 mls/hr IV ONETIME ONE Stop: 03/22/19 20:02 Last Admin: 03/22/19 18:58 Dose: 100 mls/hr Levofloxacin/Dextrose 750 mg/ (Premix) 150 mls @ 100 mls/hr IV Q24H [facility] Last Admin: 03/22/19 21:13 Dose: Not Given Magnesium Sulfate 2 gm/ Premix 50 mls @ 25 mls/hr IV ONETIME ONE Stop: 03/22/19 21:59 Last Admin: 03/22/19 20:22 Dose: 25 mls/hr Levofloxacin/Dextrose 750 mg/ (Premix) 150 mls @ 100 mls/hr IV Q24H [facility] Stop: 03/28/19 21:00 Last Admin: 03/24/19 20:40 Dose: 100 mls/hr Ipratropium [place] (Atrovent) 0.5 mg NEB Q8HRRT [facility] Last Admin: 03/23/19 14:19 Dose: 0.5 mg Ipratropium [place] (Atrovent) 0.5 mg NEB Q4HRRT [facility] Last Admin: 03/24/19 06:54 Dose: 0.5 mg Levalbuterol HCl (Xopenex) 1.25 mg NEB Q2H [facility] Last Admin: 03/24/19 06:54 Dose: 1.25 mg Methylprednisolone Sodium Succinate (Solu-Medrol) 125 mg IVPUSH ONETIME ONE Stop: 03/22/19 17:29 Last Admin: 03/22/19 17:46 Dose: 125 mg Methylprednisolone Sodium Succinate (Solu-Medrol) 125 mg IVPUSH Q24H [facility] Last Admin: 03/24/19 16:23 Dose: 125 mg Metoprolol Tartrate (Lopressor) 5 mg IVPUSH ONETIME ONE Stop: 03/23/19 14:41 Last Admin: 03/23/19 16:09 Dose: Not Given Morphine Sulfate (Morphine) 1 mg IVPUSH Q2H PRN PRN Reason: Pain (severe 7-10) Stop: 03/23/19 18:37 Oseltamivir Phosphate (Tamiflu) 75 mg PO ONETIME ONE Stop: 03/22/19 18:35 Last Admin: 03/22/19 19:00 Dose: 75 mg Potassium Chloride (Klor-Con M20) 40 meq PO ONETIME ONE Stop: 03/26/19 08:19 Last Admin: 03/26/19 08:33 Dose: 40 meq - Exam General: Reports: Alert, Oriented HEENT: Reports: Pupils Equal, Pupils Reactive, EOMI, Mucous Membr. Moist/Eros Neck: Reports: Supple Lungs: Reports: Clear to Auscultation, Normal Respiratory Effort Cardiovascular: Reports: Regular Rate, Regular Rhythm GI/Abdominal Exam: Normal Bowel Sounds, Soft, Non-Tender, No Organomegaly, No Distention, No Abnormal Bruit, No Mass, Pelvis Stable Skin: Reports: Warm, Dry, Intact Psy/Mental Status: Reports: Alert, Normal Affect, Normal Mood
== END 2019-03-26 12:54 | disposition home or self-care (01) | DRG 141 ==
LOC: JD.ED 17:24 → JD.ICU 18:35 → JD.MS 03-24 18:58
PROVIDERS: ADMIT Family Medicine; ATTEND Family Medicine
DX: J45.901 Unspecified asthma with (acute) exacerbation (principal); J15.7 Pneumonia due to Mycoplasma pneumoniae; D47.3 Essential (hemorrhagic) thrombocythemia; D50.9 Iron deficiency anemia, unspecified; E78.5 Hyperlipidemia, unspecified; E87.4 Mixed disorder of acid-base balance; E66.9 Obesity, unspecified; K21.9 Gastro-esophageal reflux disease without esophagitis; F41.9 Anxiety disorder, unspecified; F32.9 Major depressive disorder, single episode, unspecified; Z91.09 Other allergy status, other than to drugs and biological substances; Z79.899 Other long term (current) drug therapy; Z68.42 Body mass index [BMI] 45.0-49.9, adult
CPT/HCPCS: 36415; 36600; 71045; 71045-26; 71046; 71046-26; 80048; 80053; 82803; 83605; 83735; 84100; 84145; 85025; 86738; 87070; 87081; 87205; 87430; 87486; 87581; 87632; 87798; 87804; 87899; 94640; 94660; 94667; 94668; 94761; A9270-GY; J1650; J1956; J2930; J3475; J7030; J7612-GY; J7620-GY

== ENCOUNTER 2019-04-11 04:21 | Emergency (ER) | payer SELFPAY ==
[2019-04-11] MEDS ORDERED: predniSONE 20 MG Tab PO STA (05:25)
[2019-04-11] MEDS ORDERED: FLU Vacc QS2019-20(6MOS+)/PF 60 MCG/0.5 ML SYRINGE IM ONE (05:30)
--- NOTE | 2019-04-11 05:32 | EDM.PDOC ---
ED HPI GENERAL MEDICAL PROBLEM - General Chief Complaint: Asthma Stated Complaint: [facility] Time Seen by Provider: 04/11/19 04:31 Source of Information: Reports: Patient, Family (, 2 kids) History Limitations: Reports: No Limitations - History of Present Illness INITIAL COMMENTS - FREE TEXT/NARRATIVE: Mrs. Arango is a very pleasant 33-year-old woman with a past medical history significant for PFT-proven asthma, untreated depression, and morbid obesity, who states that she ordinarily takes Symbicort 2 puffs BID, Singulair once a day , and albuterol by either MDI or neb as needed to control her asthma, but, due to lack of insurance, has been out of her Singulair for about 1 month, out of her albuterol by MDI since 03/22/2019, and out of her albuterol by nebulizer since yester, 04/10/2019. She still has her Singulair. She states that she developed an asthma exacerbation around 21:00 this evening, with symptoms of shortness of breath and slight wheezing, although she denies having a cough. No recent fever. EMS gave the patient a single albuterol by nebulizer , and since then, the patient states that she feels much better. The patient states that she has a peak flow meter at home, and that her usual peak flow is between 250 and 350. She last checked her peak flow on Monday, 04/08, finding it to be 325. The patient states that she has 3 space chambers at home. She states that her last asthma exacerbation was in March, and that , in fact, since moving to [place] from [place], she rarely has asthma exacerbations, whereas when she lived in [place], they were near-daily. The patient's PCP is Dr. Brice De Leon. She does not currently have an appointment with Dr. De Leon. She received an influenza vaccine on 03/22/2019. - Related Data Allergies Allergy/AdvReac Type Severity Reaction Status Date / Time animal dander Allergy Shortness Verified 04/11/19 04:23 of Breath seasonal allergies Allergy Other Uncoded 04/11/19 04:23 Home Meds: Home Meds Cetirizine [ZyrTEC] 10 mg PO DAILY 09/15/17 [History] Ferrous Sulfate 325 mg PO DAILY 09/15/17 [History] raNITIdine HCl [Zantac] 150 mg PO BID PRN 09/15/17 [History] Albuterol Sulfate [Proair Hfa] 2 puff INH Q4H PRN #2 hfa.aer.ad 09/18/17 [Rx] Budesonide/Formoterol Fumarate [Symbicort 160-4.5 Mcg Inhaler] 2 puff INH BID # 1 hfa.aer.ad 09/18/17 [Rx] Codeine/guaiFENesin [Robitussin AC] 5 ml PO Q6H #120 ml 03/26/19 [Rx] Cyclobenzaprine [Flexeril] 10 mg PO TID #0 tablet 03/26/19 [Rx] Cyclobenzaprine [Flexeril] 10 mg PO TID PRN 03/26/19 [History] predniSONE [Prednisone] See Taper PO DAILY #30 tab.ds.pk 03/26/19 [Rx] Albuterol [Ventolin HFA] 1 - 2 puff INH Q4H PRN #1 mdi 04/11/19 [Rx] Budesonide/Formoterol [Symbicort 160-4.5 MCG] 2 puff INH BID #1 mdi 04/11/19 [Rx ] predniSONE [Prednisone] 1 tab PO QAM #3 tablet 04/11/19 [Rx] Past Medical History HEENT History: Reports: Allergic Rhinitis Respiratory History: Reports: Asthma (PFT-proven) Gastrointestinal History: Reports: GERD 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: Psychiatric History: Reports: Anxiety (untreated), Depression (untreated), Other (See Below) (Fibromyalgia) Endocrine/Metabolic History: Reports: Obesity/BMI 30+ - Infectious Disease History Infectious Disease History: Reports: Chicken Pox, RSV - Past Surgical History HEENT Surgical History: Reports: Naso-Sinus Surgery GI Surgical History: Reports: Bariatric Procedure (gastric sleeve 2014) Female Surgical History: Reports: Section (x 1), Tubal Ligation Social & Family History - Family History Family Medical History: Noncontributory - Tobacco Use Smoking Status *Q: Never Smoker - Caffeine Use Caffeine Use: Reports: Coffee - Alcohol Use Alcohol Use History: No - Recreational Drug Use Recreational Drug Use: No - Living Situation & Occupation Living situation: Reports: , with Spouse, with Family (3 kids) Occupation: Unemployed ED ROS GENERAL - Review of Systems Review Of Systems: Comprehensive ROS is negative, except as noted in HPI. ED EXAM, GENERAL - Physical Exam Exam: See Below Exam Limited By: No Limitations General Appearance: Alert, WD/WN, No Apparent Distress Eye Exam: Bilateral Eye: EOMI, Normal Inspection Ears: Normal External Exam, Hearing Grossly Normal Nose: Normal Inspection Throat/Mouth: Normal Inspection, Normal Lips, Normal Voice, No Airway Compromise Head: Atraumatic, Normocephalic, Facial Swelling Neck: Normal Inspection, Full Range of Motion Respiratory/Chest: No Respiratory Distress, Lungs Clear, No Accessory Muscle Use , Decreased Breath Sounds. No: Crackles, Rhonchi, Wheezing, Stridor, Prolonged Expiration Cardiovascular: Normal Peripheral Pulses, Regular Rate, Rhythm, No Edema, No Gallop, No JVD, No Murmur, No Rub Peripheral Pulses: 4+: Radial (L), Radial (R) GI/Abdominal: Normal Bowel Sounds, Soft, Non-Tender, No Organomegaly, No Distention, No Abnormal Bruit, No Mass (Female) Exam: Deferred Rectal (Female) Exam: Deferred Back Exam: Normal Inspection, Full Range of Motion, NT Extremities: Normal Inspection, Normal Range of Motion, No Pedal Edema, Normal Capillary Refill Neurological: Alert, Oriented, Normal Cognition, No Motor/Sensory Deficits Psychiatric: Normal Affect Skin Exam: Warm, Dry, Intact, Normal Color, No Rash Course - Vital Signs Last Recorded V/S: Last Vital Signs Temp 36.3 C 04/11/19 04:23 Pulse 115 H 04/11/19 04:23 Resp 20 04/11/19 04:23 BP 141/86 H 04/11/19 04:23 Pulse Ox 94 L 04/11/19 04:23 - Orders/Labs/Meds Meds: Medications Discontinued Medications Generic Name Dose Route Start Last Admin Trade Name Freq PRN Reason Stop Dose Admin Influenza Virus Vaccine 60 mcg 04/11/19 05:30 04/11/19 05:29 Fluzone Quad Syringe IM 04/11/19 05:31 Not Given .ONCE ONE Prednisone 40 mg 04/11/19 05:25 04/11/19 05:28 Prednisone PO 04/11/19 05:26 40 mg ONETIME STA Administration - Re-Assessments/Exams Free Text/Narrative Re-Assessment/Exam: 04/11/19 05:26 Following a single albuterol neb treatment per EMS, the patient states that her breathing feels almost back to normal, and on auscultation of her lungs, she has somewhat diminished breath sounds, but no wheezing or prolonged exhalation. For today's purposes, the patient will receive 40 mg of oral prednisone, and I will discharge her home with a prescription for prednisone 20 mg daily for 3 days. I will also write her a prescription for single albuterol MDI and a single Symbicort MDI. She is to follow-up with her PCP at the next available appointment. Departure - Departure Time of Disposition: 05:28 Disposition: Home, Self-Care 01 Condition: Good Clinical Impression: Asthma exacerbation - Discharge Information *PRESCRIPTION DRUG MONITORING PROGRAM REVIEWED*: Not Applicable *COPY OF PRESCRIPTION DRUG MONITORING REPORT IN PATIENT MARCOS: Not Applicable Prescriptions: Albuterol [Ventolin HFA] 1 - 2 puff INH Q4H PRN #1 mdi PRN Reason: Wheezing Budesonide/Formoterol [Symbicort 160-4.5 MCG] 2 puff INH BID #1 mdi predniSONE [Prednisone] 1 tab PO QAM #3 tablet Instructions: Asthma, Adult, [id number] Referrals: Brice Christie MD [Physician] - Forms: ED Department Discharge Additional Instructions: You were seen in the emergency room after developing shortness of breath and wheezing, consistent with prior asthma exacerbations. Your symptoms significantly improved after EMS gave you an albuterol neb treatment. You were started on 40 mg of prednisone in the ER. Prescriptions for prednisone, an albuterol MDI, and a Symbicort MDI has been sent to the [facility] located in the [place]. Take one tablet of prednisone every morning, starting tomorrow morning, 04/12/2019, as prescribed. Take 2 puffs of Symbicort twice a day, as prescribed. Be sure to use your space chamber every time. Take 1-2 puffs of albuterol as needed for shortness of breath and wheezing with or without a cough, provided your peak flow is not in the green zone. Be sure to use your space chamber every time. If you require albuterol more often than every 4 hours, you need to be seen by a doctor. Follow-up with your PCP, Dr. Brice Hendrix, at the next available appointment. If any other problems, please do not hesitate to return to the ER. Sepsis Event Note - Evaluation Sepsis Screening Result: No Definite Risk - Focused Exam Date Exam was Performed: 04/12/19 Time Exam was Performed: 16:34
== END 2019-04-11 05:51 | disposition home or self-care (01) ==
LOC: JD.ED 04:21
DX: J45.901 Unspecified asthma with (acute) exacerbation (principal); K21.9 Gastro-esophageal reflux disease without esophagitis; E66.9 Obesity, unspecified; Z91.09 Other allergy status, other than to drugs and biological substances; Z91.048 Other nonmedicinal substance allergy status; Z79.51 Long term (current) use of inhaled steroids; Z79.52 Long term (current) use of systemic steroids; Z79.899 Other long term (current) drug therapy; Z68.42 Body mass index [BMI] 45.0-49.9, adult
CPT/HCPCS: 99284; A9270; 99283

== ENCOUNTER 2019-04-23 09:32 | Emergency (ER) | payer SELFPAY ==
[2019-04-23] MEDS ORDERED: Albuterol/Ipratropium 3.0-0.5 MG/3 ML Neb Soln ONE (09:37)
[2019-04-23] MEDS ORDERED: Albuterol/Ipratropium 3.0-0.5 MG/3 ML Neb Soln NEB ONE ×3 (09:37→11:05)
[2019-04-23] MEDS ORDERED: Dexamethasone 10 MG/ML SDV IVPUSH ONE (09:40)
[2019-04-23] MEDS ORDERED: Albuterol 0.083% 2.5 MG/3 ML Neb Soln NEB ONE (09:46)
[2019-04-23] MEDS ORDERED: Albuterol 0.083% 2.5 MG/3 ML Neb Soln ONE (09:47)
--- NOTE | 2019-04-23 09:50 | EDM.PDOC ---
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 Apparently she ran out of her albuterol medication yesterday. She states she's been sick with persistent upper respiratory tract infection and cough. Well since January. No significant fever. Sputum is thick and sticky. He can color with no hemoptysis. No known fever or chills. She was up most of the night due to severe asthma. Gave HER-2 puffs of albuterol with minimal relief and then start her on a racemic epinephrine 2.5 mg per mask. This did start open her up so that she continue air entry at least getting down to the lower lobes. Coughing at this time. Onset: Gradual Onset Date: 04/22/19 (Him started last night.) Duration: Hour(s):, Getting Worse Location: Reports: Chest (Severe asthma attack shortness of breath dyspnea with wheezing and cough) Quality: Reports: Other Severity: Severe (Wheezing cough) Improves with: Reports: Other (She is now able to get air down into her lower lungs after racemic epinephrine given when necessary nebulizer by paramedics.) Worsens with: Reports: Movement Context: Denies: Activity, Exercise, Lifting, Sick Contact, Trauma, Other Associated Symptoms: Reports: Chest Pain (She reports cough with sputum production since January. Chest discomfort), Cough, cough w sputum, Diaphoresis , Loss of Appetite, Malaise, Shortness of Breath (Severe). 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 (see below) (Paramedics did did give her -2 puffs of albuterol and racemic epinephrine) Headache Pain Score (Numeric/FACES): 6 Back Pain Score (Numeric/FACES): 10 - Related Data Allergies Allergy/AdvReac Type Severity Reaction Status Date / Time animal dander Allergy Shortness Verified 04/23/19 09:56 of Breath seasonal allergies Allergy Other Uncoded 04/23/19 09:56 Home Meds: Home Meds Cetirizine [ZyrTEC] 10 mg PO DAILY 09/15/17 [History] Ferrous Sulfate 325 mg PO DAILY 09/15/17 [History] raNITIdine HCl [Zantac] 150 mg PO BID PRN 09/15/17 [History] Albuterol [Ventolin HFA] 1 - 2 puff INH Q4H PRN #1 mdi 04/11/19 [Rx] Budesonide/Formoterol [Symbicort 160-4.5 MCG] 2 puff INH BID #1 mdi 04/11/19 [Rx ] Cyclobenzaprine [Flexeril] 10 mg PO TID PRN 04/23/19 [History] predniSONE 20 mg PO ASDIRECTED #18 tab 04/23/19 [Rx] Past Medical History HEENT History: Reports: Allergic Rhinitis Other HEENT History: sinus headaches Cardiovascular History: Reports: None Respiratory History: Reports: Asthma (PFT-proven) Other Respiratory History: RSV, bronchial pneumonia has had breathing issues since then approx. 15 yrs. 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: Musculoskeletal History: Reports: Arthritis, Fibromyalgia Neurological History: Reports: Migraines Psychiatric History: Reports: Anxiety (untreated), Depression (untreated), Other (See Below) (Fibromyalgia) Endocrine/Metabolic History: Reports: Obesity/BMI 30+ Hematologic History: Reports: Anemia Immunologic History: Reports: None Oncologic (Cancer) History: Reports: None Dermatologic History: Reports: None - Infectious Disease History Infectious Disease History: Reports: Chicken Pox, RSV - Past Surgical History HEENT Surgical History: Reports: Naso-Sinus Surgery GI Surgical History: Reports: Bariatric Procedure (gastric sleeve 2014) Female Surgical History: Reports: Section (x 1), Tubal Ligation Social & Family History - Family History Family Medical History: Noncontributory - Caffeine Use Caffeine Use: Reports: Coffee - Living Situation & Occupation Living situation: Reports: , with Spouse, with Family (3 kids) Occupation: Unemployed ED ROS GENERAL - Review of Systems Review Of Systems: See Below Constitutional: Reports: Malaise, Weakness, Fatigue. Denies: Fever, Chills HEENT: Reports: No Symptoms Respiratory: Reports: Shortness of Breath, Wheezing, Cough, Sputum. Denies: Pleuritic Chest Pain, Hemoptysis Cardiovascular: Reports: Chest Pain (Thick white sticky sputum), Dyspnea on Exertion, Lightheadedness. Denies: Blood Pressure Problem ( chest pain. Coughing and a heavy pressure sensation upper chest), Claudication, Edema, Orthopnea Endocrine: Reports: Fatigue GI/Abdominal: Reports: No Symptoms : Reports: No Symptoms Musculoskeletal: Reports: Back Pain Skin: Reports: No Symptoms Neurological: Reports: No Symptoms Psychiatric: Reports: No Symptoms Hematologic/Lymphatic: Reports: No Symptoms Immunologic: Reports: No Symptoms ED EXAM, GENERAL - Physical Exam Exam: See Below Exam Limited By: Uncooperative ([place] respiratory distress. She is cool and clammy and can speak in only 1-3 word sentences.) General Appearance: Alert, WD/WN, Severe Distress, Other Eye Exam: Bilateral Eye: Normal Inspection Throat/Mouth: Normal Inspection, Normal Lips, Normal Teeth, Normal Oropharynx Head: Atraumatic, Normocephalic Neck: Normal Inspection, Supple, Non-Tender, Full Range of Motion. No: Lymphadenopathy (L), Lymphadenopathy (R) Respiratory/Chest: Chest Non-Tender, Respiratory Distress, Decreased Breath Sounds ( Diffuse wheezing throughout all 5 lung couch.), Rhonchi, Wheezing ( Marked respiratory distress.), Accessory Muscle Use. No: Lungs Clear, Normal Breath Sounds Cardiovascular: Normal Peripheral Pulses, Regular Rate, Rhythm, No Edema, No Gallop, No Murmur, No Rub Peripheral Pulses: 2+: Posterior Tibial (L), Posterior Tibial (R), Dorsalis Pedis (L), Dorsalis Pedis (R) GI/Abdominal: Soft (Mildly tympanitic to percussion upper abdomen compatible some degree of aerophagia.), Non-Tender, No Organomegaly, No Abnormal Bruit, No Mass, Pelvis Stable, Distended, Other (Moderately obese.) Back Exam: Normal Inspection, Full Range of Motion, Other (Increased lumbar). No: CVA Tenderness (L), CVA Tenderness (R) Extremities: Normal Inspection ( lordotic curvature.), Normal Range of Motion, Non-Tender Neurological: Alert, Oriented, CN II-XII Intact, Normal Cognition Psychiatric: Other Skin Exam: Diaphoretic Course - Vital Signs Last Recorded V/S: Last Vital Signs Temp 36.5 C 04/23/19 09:32 Pulse 112 H 04/23/19 09:32 Resp 16 04/23/19 09:32 BP 128/77 04/23/19 09:32 Pulse Ox 93 L 04/23/19 09:47 - Orders/Labs/Meds Orders: Active Orders 24 hr Category Date Time Status RT Aerosol Therapy [RC] ASDIRECTED Care 04/23/19 09:38 Active RT Aerosol Therapy [RC] ASDIRECTED Care 04/23/19 09:47 Active RT Aerosol Therapy [RC] ASDIRECTED Care 04/23/19 11:06 Active RT Post Treatment Assessment [RC] Click to Edit Care 04/23/19 11:05 Active RT Pre-Treatment Assessment [RC] Click to Edit Care 04/23/19 11:05 Active Albuterol [Proventil HFA] Med 04/23/19 11:03 Active 6.5 gm INH Q3H PRN Medication Orders Albuterol (Proventil Hfa) 6.5 gm INH Q3H PRN PRN Reason: Wheezing/dyspnea Last Admin: 04/23/19 11:37 Dose: 2 puff Labs: Laboratory Tests 04/23/19 04/23/19 04/23/19 Range/Units 09:40 09:40 09:40 WBC 11.91 H (3.98-10.04) K/mm3 RBC 6.08 H (3.98-5.22) M/mm3 Hgb 11.5 D (11.2-15.7) gm/dl Hct 38.7 (34.1-44.9) % MCV 63.7 L (79.4-94.8) fl MCH 18.9 L (25.6-32.2) pg MCHC 29.7 L (32.2-35.5) g/dl RDW Std Deviation 45.1 (36.4-46.3) fL Plt Count 582 H D (182-369) K/mm3 MPV 10.3 (9.4-12.3) fl Neut % (Auto) 70.3 (34.0-71.1) % Lymph % (Auto) 19.3 (19.3-51.7) % [place] % (Auto) 4.6 L (4.7-12.5) % Eos % (Auto) 4.7 (0.7-5.8) Baso % (Auto) 0.8 (0.1-1.2) % Neut # (Auto) 8.38 H (1.56-6.13) K/mm3 Lymph # (Auto) 2.30 (1.18-3.74) K/mm3 [place] # (Auto) 0.55 H (0.24-0.36) K/mm3 Eos # (Auto) 0.56 H (0.04-0.36) K/mm3 Baso # (Auto) 0.09 H (0.01-0.08) K/mm3 Manual Slide Review Abnormal smear Sodium 139 (136-145) mEq/L Potassium 5.0 D (3.5-5.1) mEq/L Chloride 103 (98-107) mEq/L Carbon Dioxide 26 (21-32) mEq/L Anion Gap 15.0 (5-15) BUN 9 (7-18) mg/dL Creatinine 0.9 (0.55-1.02) mg/dL Est Cr Clr Drug Dosing 79.25 mL/min Estimated GFR (MDRD) > 60 (>60) mL/min BUN/Creatinine Ratio 10.0 L (14-18) Glucose 98 (74-106) mg/dL Calcium 8.9 (8.5-10.1) mg/dL Magnesium 2.2 (1.8-2.4) mg/dl Iron 18 L (50-170) ug/dL TIBC 448 H (100-400) ug/dL % Saturation 4 L (20-55) % Transferrin 358 (202-364) mg/dL Total Bilirubin 0.2 (0.2-1.0) mg/dL AST 18 (15-37) U/L ALT 22 (14-59) U/L Alkaline Phosphatase 58 (46-116) U/L C-Reactive Protein 0.9 (<1.0) mg/dL Total Protein 8.0 (6.4-8.2) g/dl Albumin 3.7 (3.4-5.0) g/dl Globulin 4.3 gm/dL Albumin/Globulin Ratio 0.9 L (1-2) Meds: Medications Generic Name Dose Route Start Last Admin Trade Name Freq PRN Reason Stop Dose Admin Albuterol 6.5 gm 04/23/19 11:03 04/23/19 11:37 Proventil Hfa INH 2 puff Q3H PRN Administration Wheezing/dyspnea Discontinued Medications Generic Name Dose Route Start Last Admin Trade Name Freq PRN Reason Stop Dose Admin Albuterol 7.5 mg 04/23/19 09:46 04/23/19 09:53 Proventil Neb Soln NEB 04/23/19 09:47 7.5 mg ONETIME ONE Administration Albuterol Confirm 04/23/19 09:47 04/23/19 10:29 Proventil Neb Soln Administered 04/23/19 09:48 Not Given Dose 7.5 mg .ROUTE .STK-MED ONE Albuterol/Ipratropium 3 ml 04/23/19 09:37 04/23/19 09:40 Duoneb 3.0-0.5 Mg/3 Ml NEB 04/23/19 09:38 3 ml ONETIME ONE Administration Albuterol/Ipratropium 9 ml 04/23/19 09:38 04/23/19 09:55 Duoneb 3.0-0.5 Mg/3 Ml NEB 04/23/19 09:39 Not Given ONETIME ONE Albuterol/Ipratropium Confirm 04/23/19 09:37 04/23/19 09:44 Duoneb 3.0-0.5 Mg/3 Ml Administered 04/23/19 09:38 Not Given Dose 3 ml .ROUTE .STK-MED ONE Albuterol/Ipratropium 3 ml 04/23/19 11:05 04/23/19 11:37 Duoneb 3.0-0.5 Mg/3 Ml NEB 04/23/19 11:06 3 ml ONETIME ONE Administration Dexamethasone 12 mg 04/23/19 09:40 04/23/19 09:49 Dexamethasone IVPUSH 04/23/19 09:41 12 mg ONETIME ONE Administration Magnesium Sulfate 2 gm/ Premix 50 mls @ 25 mls/hr 04/23/19 09:45 04/23/19 11: 40 IV 04/23/19 11:44 25 mls/hr Q1H ELLIE Administration - Radiology Interpretation Free Text/Narrative:: 33-year-old female presents to the ED per [facility] with a severe asthma attack. Called from home. She been up all night with an asthma attack. She ran out of her albuterol inhaler about a day and a half ago. She's had a productive cough basically since January. No associated fevers. Sputum is thick and white. Paramedics treated her with 2 puffs of albuterol with minimal relief and then used racemic epinephrine as she was so tight she could not speak. This did open up so that she could get air entry to all 5 lung couch with increased wheezing. Reported to me what her initial O2 sats were.Her 02 sats are 94% on room air.. Blood pressure is 92/77. One view chest x-ray. She will be given dexamethasone 12 mg IV in magnesium 2 g intravenously over the next hour. She will receive an DuoNeb at this time and then 7.5 mg of albuterol continuously over the next hour. - Re-Assessments/Exams Free Text/Narrative Re-Assessment/Exam: 04/23/19 10:20: Patient is completed liter continuous albuterol inhalation for 45 minutes. She still has wheezing in all lung couch but is able to speak in sentences. She indicates that her asthma was been under control until she ran out of her Symbicort and insurance will not pay for it. Insurance is to take over again about minutes were and she is hopeful to get back on Symbicort twice a day. When she was on this medication she did not have any asthma attacks. Is to x-ray done portably reveals a prominence of the right pulmonary artery with perhaps slight diffuse vascular congestion pattern. Slight hyper inflation. 04/23/19 10:39 Labs reveal a slightly elevated white count of 11.91. The auto differential shows 70% neutrophils. Hemoglobin is slightly low 11.5 with hematocrit of 38.7. MCV is low at 63.7 suggesting iron deficiency. 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 Sodium 139 with potassium of 5.0. Chloride 103 with a bicarbonate 26. And a gap is 15.0. BUNs 9 with a creatinine of 0.9. GFR is greater than 60. Glucose is 98. Calcium is 8.9 magnesium is 2.2 liver function is normal. C-reactive protein is 0.9 total protein is 8.0. 04/23/19 11:06 she remains wheezing throughout all lung couch with O2 sats of 92-93% on room air. She still working a bit hard to breathe. Magnesium infusion is been completed. I will have respiratory therapy give her another DuoNeb while in the department as well as a inhaler for albuterol 6.5 g to be used 2 puffs every 3 hours as needed for relief of asthma symptoms. The plan will be to discharge her home on prednisone 20 mg twice a day for 6 days and then once in the morning for another 6 days. 04/23/19 11:56 the last dose of DuoNeb did seem to help and her sats are in size 96% when speaking. Remains diffusely wheezy. I'm going to place her on the above medications and she was given a albuterol inhaler through the ED today. Coarse return to the hospital if her symptoms do not markedly improved in the next 12 hours. Departure - Departure Time of Disposition: 11:57 Disposition: Home, Self-Care 01 Condition: Fair Clinical Impression: Asthma with severe asthma attack Exacerbation of asthma Qualifiers: Asthma severity: severe Asthma persistence: unspecified Qualified Code(s): J45.901 - Unspecified asthma with (acute) exacerbation - Discharge Information *PRESCRIPTION DRUG MONITORING PROGRAM REVIEWED*: Not Applicable *COPY OF PRESCRIPTION DRUG MONITORING REPORT IN PATIENT MARCOS: Not Applicable Prescriptions: predniSONE 20 mg PO ASDIRECTED #18 tab Instructions: Asthma, Adult, [id number] Referrals: Brice Christie MD [Primary Care Provider] - Forms: ED Department Discharge, ED Return to Work/School Form Additional Instructions: Evaluation in the emergency room today in regards to acute exacerbation of asthma. Her suffering a severe attack and were brought to the hospital for immediate treatment. He did receive initial DuoNeb and then continuous albuterol for 45 minutes to an hour which did open you are. He also received initial dose of steroid dexamethasone intravenously. Serum magnesium 2 mg IV. He also then received a second dose of DuoNeb and each time you continue to slowly improve. My goal is they allow the steroids to work to open up her lung tubes over the next 6-12 hours. He will need to take prednisone tablet 20 mg strength twice daily for the next 6 days with the first tablet being due tonight at bedtime. And then 1 tablet in the morning with breakfast for another 6 days. May use albuterol metered-dose inhaler 2 puffs every 2-4 hours as necessary for relief of wheezing and/or asthma. If symptoms worsen over the next 12 hours then returned to the ED. Sepsis Event Note - Focused Exam Vital Signs: Vital Signs Temp Pulse Resp BP Pulse Ox Pulse Ox 04/23/19 09:47 93 L 04/23/19 09:32 36.5 C 112 H 16 128/77 92 L Date Exam was Performed: 04/23/19 Time Exam was Performed: 12:06 - My Orders Last 24 Hours: My Active Orders 04/23/19 09:38 RT Aerosol Therapy [RC] ASDIRECTED 04/23/19 09:47 RT Aerosol Therapy [RC] ASDIRECTED 04/23/19 11:03 Albuterol [Proventil HFA] 6.5 gm INH Q3H PRN 04/23/19 11:05 RT Post Treatment Assessment [RC] Click to Edit RT Pre-Treatment Assessment [RC] Click to Edit 04/23/19 11:06 RT Aerosol Therapy [RC] ASDIRECTED - Assessment/Plan Last 24 Hours: My Active Orders 04/23/19 09:38 RT Aerosol Therapy [RC] ASDIRECTED 04/23/19 09:47 RT Aerosol Therapy [RC] ASDIRECTED 04/23/19 11:03 Albuterol [Proventil HFA] 6.5 gm INH Q3H PRN 04/23/19 11:05 RT Post Treatment Assessment [RC] Click to Edit RT Pre-Treatment Assessment [RC] Click to Edit 04/23/19 11:06 RT Aerosol Therapy [RC] ASDIRECTED
[2019-04-23] MEDS: Magnesium Sulfate/Water 2 GM in Premix Bag 1 BAG IV SCH ×2 (09:52→11:40)
--- NOTE | 2019-04-23 11:01 | CR ---
Chest: Portable view of the chest was obtained. Comparison: Prior chest x-ray of 03/25/19. Heart size and mediastinum are normal. Lungs are clear. Bony structures are grossly intact. Impression: 1. Nothing acute is appreciated on portable chest x-ray. Diagnostic code #1 This report was dictated in [place] Standard Time
[2019-04-23] MEDS ORDERED: Albuterol 6.7 GM Inhaler INH PRN (11:03)
== END 2019-04-23 12:09 | disposition home or self-care (01) ==
LOC: JD.ED 09:32 → SUPCPDRO 09:32 → JD.ED 12:09
DX: J45.901 Unspecified asthma with (acute) exacerbation (principal); K21.9 Gastro-esophageal reflux disease without esophagitis; M19.90 Unspecified osteoarthritis, unspecified site; E66.9 Obesity, unspecified; Z68.42 Body mass index [BMI] 45.0-49.9, adult; Z91.048 Other nonmedicinal substance allergy status; Z79.899 Other long term (current) drug therapy
CPT/HCPCS: 36415; 71045; 80053; 83540; 83735; 84466; 85025; 86140; 94640; 96365; 96366; 96375; 99285; A9270; J1100; J3475; J7620-GY

== ENCOUNTER 2019-10-22 18:04 | Emergency (ER) | payer BC ==
--- NOTE | 2019-10-22 20:13 | CR ---
Right ankle: 4 views of the right ankle were obtained. Comparison: No previous ankle study. Small plantar spur is noted. Ankle mortise is symmetric. No discrete fracture, dislocation or other bony abnormality is seen. Soft tissue swelling is present. Impression: 1. Soft tissue swelling. 2. Small plantar spur. 3. No definite acute bony abnormality is seen. Diagnostic code #2 This report was dictated in MDT
--- NOTE | 2019-10-22 20:15 | CR ---
Right foot: 4 views of the right foot were obtained. Comparison: No previous study. Soft tissue swelling is noted. Small plantar spur is seen. Small bony density is noted between the 1st and 2nd metatarsal base. Findings suggest the possibility of a small avulsion fracture possibly due to Lisfranc injury without significant displacement of the metatarsals. No additional fracture or other bony abnormality is seen. Impression: 1. Probable small avulsion fracture between the base of the 1st and 2nd metatarsals most likely off the 1st cuneiform bone. 2. Soft tissue swelling. 3. Small plantar spur. Diagnostic code #3 This report was dictated in MDT
--- NOTE | 2019-10-22 20:17 | CR ---
Pelvis and right hip: AP view of the pelvis was obtained as well as AP and frog-leg lateral views of the right hip. Enlarged transverse process at the lumbosacral junction with pseudoarticulation to the sacrum compatible with partial transitional segment. Joint spaces within both hips are preserved. No acute fracture or other bony abnormality is appreciated. Impression: 1. Partial transitional segment. 2. Nothing acute is seen on AP pelvis or on 2 view right hip exam. Diagnostic code #2 This report was dictated in MDT
--- NOTE | 2019-10-22 22:35 | EDM.PDOC ---
ED HPI GENERAL MEDICAL PROBLEM - General Chief Complaint: Lower Extremity Injury/Pain Stated Complaint: FALL/R SIDE BODILY INJURIES Time Seen by Provider: 10/22/19 18:53 Source of Information: Reports: Patient History Limitations: Reports: No Limitations - History of Present Illness INITIAL COMMENTS - FREE TEXT/NARRATIVE: Patient is a 34-year-old female who presents to the emergency department with complaints of right foot, right ankle, and right hip pain. She states she was walking down a flight of stairs and missed the last stair. She was wearing flip-flops and states she rolled her foot. She is unsure of the exact mechanism of injury. She has not been able to bear weight on her right foot since the time of injury. She does have some pain in her right hip as well however she does have chronic right hip pain. She has a superficial abrasion to the right forearm as well. She denies any history of previous injury to her right ankle or right foot. She has not taken anything for pain thus far. Right Ankle Pain Score (Numeric/FACES): 10 - Related Data Allergies Allergy/AdvReac Type Severity Reaction Status Date / Time animal dander Allergy Shortness Verified 10/22/19 18:50 of Breath seasonal allergies Allergy Other Uncoded 10/22/19 18:50 Home Meds: Home Meds Cetirizine [ZyrTEC] 10 mg PO DAILY 09/15/17 [History] Ferrous Sulfate 325 mg PO DAILY 09/15/17 [History] raNITIdine HCl [Zantac] 150 mg PO BID PRN 09/15/17 [History] Albuterol [Ventolin HFA] 1 - 2 puff INH Q4H PRN #1 mdi 04/11/19 [Rx] Budesonide/Formoterol [Symbicort 160-4.5 MCG] 2 puff INH BID #1 mdi 04/11/19 [Rx] Cyclobenzaprine [Flexeril] 10 mg PO TID PRN 04/23/19 [History] predniSONE 20 mg PO ASDIRECTED #18 tab 04/23/19 [Rx] Past Medical History HEENT History: Reports: Allergic Rhinitis Other HEENT History: sinus headaches Cardiovascular History: Reports: None Other Cardiovascular History: tahycardia due to increased meds given while in hospital. Respiratory History: Reports: Asthma Other Respiratory History: RSV, bronchial pneumonia has had breathing issues since then approx. 15 yrs. 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: Musculoskeletal History: Reports: Arthritis, Fibromyalgia Neurological History: Reports: Migraines Psychiatric History: Reports: Anxiety, Depression, Other (See Below) Endocrine/Metabolic History: Reports: Obesity/BMI 30+ Hematologic History: Reports: Anemia Immunologic History: Reports: None Oncologic (Cancer) History: Reports: None Dermatologic History: Reports: None - Infectious Disease History Infectious Disease History: Reports: Chicken Pox, RSV - Past Surgical History HEENT Surgical History: Reports: Naso-Sinus Surgery GI Surgical History: Reports: Bariatric Procedure Female Surgical History: Reports: Section, Tubal Ligation Social & Family History - Family History Family Medical History: Noncontributory - Tobacco Use Smoking Status *Q: Never Smoker Second Hand Smoke Exposure: No - Caffeine Use Caffeine Use: Reports: Coffee, Tea - Recreational Drug Use Recreational Drug Use: No - Living Situation & Occupation Living situation: Reports: , with Spouse, with Family (3 kids) Occupation: Unemployed Review of Systems - Review of Systems Review Of Systems: Comprehensive ROS is negative, except as noted in HPI. ED EXAM, GENERAL - Physical Exam Exam: See Below Exam Limited By: No Limitations General Appearance: Alert, WD/WN, No Apparent Distress Respiratory/Chest: No Respiratory Distress, Lungs Clear, Normal Breath Sounds, No Accessory Muscle Use, Chest Non-Tender Cardiovascular: Normal Peripheral Pulses, Regular Rate, Rhythm, No Edema, No Gallop, No JVD, No Murmur, No Rub Extremities: Other (Significant tenderness to palpation as well as moderate swelling to the dorsal aspect of the right foot. No ecchymosis noted.) Neurological: Alert, Oriented, CN II-XII Intact, Normal Cognition, Normal Gait, Normal Reflexes, No Motor/Sensory Deficits Psychiatric: Normal Affect, Normal Mood Skin Exam: Other (5 cm superficial abrasion to the right forearm.) Course - Vital Signs Last Recorded V/S: Last Vital Signs Temp 97.2 F 10/22/19 18:46 Pulse 89 10/22/19 18:46 Resp 18 10/22/19 18:46 BP 136/70 10/22/19 18:46 Pulse Ox 99 10/22/19 18:46 - Orders/Labs/Meds Orders: Active Orders 24 hr Category Date Time Status Foot wo Cont Rt [CT] Stat Exams 10/22/19 20:28 Taken - Re-Assessments/Exams Free Text/Narrative Re-Assessment/Exam: Patient is a 34-year-old female who presents to the emergency department with significant right foot and right ankle pain, as well as some pain in her right hip and a scratch to her right forearm. I have ordered x-rays of the foot, ankle, and hip. 10/22/192029 X-rays of the hip and ankle are negative for any acute abnormalities. Foot x- ray does show a probable small avulsion fracture between the base of the first and second metatarsals most likely off the first cuneiform bone. Findings are concerning for a Lisfranc injury without significant displacement of the metatarsals. Also shows soft tissue swelling. I have ordered a CT scan of the right foot. 10/22/192224 CT scan of the right foot shows acute fractures of the proximal first, third, and fourth metatarsals. They are nondisplaced but involve the articular obey faces. I did call and speak with the orthopedist on-call, Dr. Keller. He recommended that we splint the foot and refer the patient to Dr. [facility] at [facility] [place]. Patient has been placed in a custom Ortho-Glass short leg splint. She did have crutches that she brought with her from home. A referral has been sent to Dr. Jose [facility] at [facility] in [place]. I will provide the patient with a Insta med prescription for Normangee as needed for pain. Discharge instructions as documented. Departure - Departure Time of Disposition: 22:30 Disposition: Home, Self-Care 01 Condition: Good Clinical Impression: Lisfranc fracture - Discharge Information *PRESCRIPTION DRUG MONITORING PROGRAM REVIEWED*: Yes *COPY OF PRESCRIPTION DRUG MONITORING REPORT IN PATIENT MARCOS: No Instructions: Lisfranc Injury Referrals: Jose iWley MD [Ordering Only Provider] - Forms: ED Department Discharge Additional Instructions: You were seen in the emergency department today for pain to your right foot, right ankle, and right hip after falling on the stairs. X-rays were completed of your hip, ankle, and foot and a CT scan was also completed of your right foot.. There were no fractures found in your hip or ankle, however there are fractures noted to the proximal first, third, and fourth metatarsals in your foot. These are consistence with a Lisfranc fracture injury. Your right foot has been placed in a splint. You should be nonweightbearing and using crutches. Recommend follow-up with Dr. Jose Wiley at [facility] in [place]. The number to schedule with him as listed below. You should ice and elevate your foot when at rest. Use [id number] Tylenol as needed for pain. For pain not relieved by Tylenol, you have been provided with a prescription for Normangee. You may use this 1 tab every 4 hours as needed for pain. Do not drive or work for 12 hours after taking this medication as it is narcotic and can be sedating. Return to the ER as needed. Sepsis Event Note (ED) - Evaluation Sepsis Screening Result: No Definite Risk - Focused Exam Vital Signs: Vital Signs Temp Pulse Resp BP Pulse Ox 10/22/19 18:46 97.2 F 89 18 136/70 99 - My Orders Last 24 Hours: My Active Orders 10/22/19 20:28 Foot wo Cont Rt [CT] Stat - Assessment/Plan Last 24 Hours: My Active Orders 10/22/19 20:28 Foot wo Cont Rt [CT] Stat
--- NOTE | 2019-10-23 11:48 | CT ---
CT right foot Technique: Multiple axial sections through the right foot were obtained. Comparison: Prior right foot radiographic study performed earlier on the same day (7:20 PM). Findings: Slightly comminuted fracture identified within the corner base of the proximal 1st metatarsal. Articular extension is seen. Alignment remains close to anatomic. Minimal bia of bone is noted off the lateral edge of the 2nd cuneiform bone possibly due to very minimal cortical chip fracture. Small corner fracture is identified with articular extension off the base of the 3rd metatarsal. Minimal bia of bone is noted at the base of the 4th metatarsal felt compatible with very minimal cortical fracture. No additional foot fracture is appreciated. Impression: 1. Numerous fractures involving the 1st, 3rd and 4th metatarsal bases as well as possible small cortical fracture within the distal lateral aspect of the 2nd cuneiform bone. Diagnostic code #3 This report was dictated in MDT I agree with preliminary report from [facility], finalized on 10/22/19, 10:27 PM Central Daylight Time
== END 2019-10-22 22:50 | disposition home or self-care (01) ==
LOC: JD.ED 18:04
DX: S92.311A Displaced fracture of first metatarsal bone, right foot, initial encounter for closed fracture (principal); S92.331A Displaced fracture of third metatarsal bone, right foot, initial encounter for closed fracture; S92.341A Displaced fracture of fourth metatarsal bone, right foot, initial encounter for closed fracture; S50.811A Abrasion of right forearm, initial encounter; K21.9 Gastro-esophageal reflux disease without esophagitis; E66.9 Obesity, unspecified; J45.909 Unspecified asthma, uncomplicated; Z91.09 Other allergy status, other than to drugs and biological substances; Z79.899 Other long term (current) drug therapy; W10.9XXA Fall (on) (from) unspecified stairs and steps, initial encounter
CPT/HCPCS: 29515; 73502-26-RT; 73502-RT; 73610-26-RT; 73610-RT; 73630-26-RT; 73630-RT; 73700-26-RT; 73700-RT; 99284-25

== ENCOUNTER 2020-03-03 18:57 | Emergency (ER) | payer SELFPAY ==
[2020-03-03] MEDS ORDERED: Albuterol 0.083% 2.5 MG/3 ML Neb Soln NEB ONE (20:35)
[2020-03-03] MEDS ORDERED: predniSONE 20 MG Tab PO ONE (20:35)
--- NOTE | 2020-03-03 20:45 | EDM.PDOC ---
ED HPI GENERAL MEDICAL PROBLEM - General Chief Complaint: Respiratory Problem Stated Complaint: SOB COUGH CHEST PRESSURE Time Seen by Provider: 03/03/20 20:21 Source of Information: Reports: Patient, RN Notes Reviewed - History of Present Illness INITIAL COMMENTS - FREE TEXT/NARRATIVE: 34 yr old female suffering asthma attack that started a few days ago. Worse today. no unusual cough. No fever or chills. Last neb about 5 hrs ago. Headache Pain Score (Numeric/FACES): 7 - Related Data Allergies Allergy/AdvReac Type Severity Reaction Status Date / Time animal dander Allergy Shortness Verified 10/22/19 18:50 of Breath seasonal allergies Allergy Other Uncoded 10/22/19 18:50 Home Meds: Home Meds Cetirizine [ZyrTEC] 10 mg PO DAILY 09/15/17 [History] Ferrous Sulfate 325 mg PO DAILY 09/15/17 [History] raNITIdine HCl [Zantac] 150 mg PO BID PRN 09/15/17 [History] Albuterol [Ventolin HFA] 1 - 2 puff INH Q4H PRN #1 mdi 04/11/19 [Rx] Budesonide/Formoterol [Symbicort 160-4.5 MCG] 2 puff INH BID #1 mdi 04/11/19 [Rx] Cyclobenzaprine [Flexeril] 10 mg PO TID PRN 04/23/19 [History] predniSONE 20 mg PO ASDIRECTED #18 tab 04/23/19 [Rx] predniSONE [Prednisone] 50 mg PO DAILY #5 tablet 03/03/20 [Rx] Past Medical History HEENT History: Reports: Allergic Rhinitis Other HEENT History: sinus headaches Cardiovascular History: Reports: None Other Cardiovascular History: tahycardia due to increased meds given while in hospital. Respiratory History: Reports: Asthma Other Respiratory History: RSV, bronchial pneumonia has had breathing issues since then approx. 15 yrs. 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: Musculoskeletal History: Reports: Arthritis, Fibromyalgia Neurological History: Reports: Migraines Psychiatric History: Reports: Anxiety, Depression, Other (See Below) Endocrine/Metabolic History: Reports: Obesity/BMI 30+ Hematologic History: Reports: Anemia Immunologic History: Reports: None Oncologic (Cancer) History: Reports: None Dermatologic History: Reports: None - Infectious Disease History Infectious Disease History: Reports: Chicken Pox, RSV - Past Surgical History HEENT Surgical History: Reports: Naso-Sinus Surgery Other HEENT Surgeries/Procedures: sinus surgery Respiratory Surgical History: Reports: None GI Surgical History: Reports: Bariatric Procedure Other GI Surgeries/Procedures: gastric "sleeve"-2015 Female Surgical History: Reports: Section, Tubal Ligation Endocrine Surgical History: Reports: None Neurological Surgical History: Reports: None Musculoskeletal Surgical History: Reports: None, Other (See Below) Other Musculoskeletal Surgeries/Procedures:: slipped discs, and spinal degeneration Dermatological Surgical History: Reports: None Social & Family History - Family History Family Medical History: No Pertinent Family History - Tobacco Use Tobacco Use Status *Q: Never Tobacco User Second Hand Smoke Exposure: No - Caffeine Use Caffeine Use: Reports: Coffee - Recreational Drug Use Recreational Drug Use: No - Living Situation & Occupation Living situation: Reports: , with Spouse, with Family (3 kids) Occupation: Unemployed ED ROS GENERAL - Review of Systems Review Of Systems: See Below Constitutional: Denies: Fever, Chills HEENT: Denies: Rhinitis, Sinus Problem, Throat Pain Respiratory: Reports: Shortness of Breath, Wheezing, Cough (very occasional) Cardiovascular: Denies: Chest Pain GI/Abdominal: Denies: Abdominal Pain, Nausea, Vomiting Musculoskeletal: Reports: No Symptoms Skin: Reports: No Symptoms Neurological: Reports: No Symptoms ED EXAM, GENERAL - Physical Exam Exam: See Below General Appearance: Alert, Mild Distress Head: Atraumatic. No: Facial Swelling Neck: Supple Respiratory/Chest: Respiratory Distress (mild tachypnea), Wheezing (mild to moderate bilat). No: Rales, Rhonchi Cardiovascular: Tachycardia Extremities: Normal Inspection. No: Pedal Edema, Leg Pain Neurological: Alert, Oriented, No Motor/Sensory Deficits Skin Exam: Warm, Normal Color, No Rash Course - Vital Signs Last Recorded V/S: Last Vital Signs Temp 97.4 F 03/03/20 21:14 Pulse 110 H 03/03/20 21:14 Resp 20 03/03/20 21:14 BP 127/84 03/03/20 21:14 Pulse Ox 95 03/03/20 21:14 - Orders/Labs/Meds Orders: Active Orders 24 hr Category Date Time Status Chest 1V Frontal [CR] Stat Exams 03/03/20 20:22 Taken Meds: Medications Discontinued Medications Generic Name Dose Route Start Last Admin Trade Name Pao PRN Reason Stop Dose Admin Albuterol 2.5 mg 03/03/20 20:35 03/03/20 20:45 Proventil Neb Soln NEB 03/03/20 20:36 2.5 mg ONETIME ONE Administration Prednisone 60 mg 03/03/20 20:35 03/03/20 21:12 Prednisone PO 03/03/20 20:36 60 mg ONETIME ONE Administration - Re-Assessments/Exams Free Text/Narrative Re-Assessment/Exam: 03/03/20 23:22 Have given prednisone 60 mg PO, discharge inst. as documented. Departure - Departure Time of Disposition: 20:45 Disposition: Home, Self-Care 01 Condition: Fair Clinical Impression: Asthma Qualifiers: Asthma severity: moderate Asthma persistence: unspecified Asthma complication type: uncomplicated Qualified Code(s): J45.909 - Unspecified asthma, uncomplicated - Discharge Information Prescriptions: predniSONE [Prednisone] 50 mg PO DAILY #5 tablet Instructions: Asthma, Adult, [id number] Referrals: Brice Christie MD [Primary Care Provider] - Forms: ED Department Discharge Additional Instructions: Your CXR is clear, I do not see pneumonia. Continue your albuterol nebs. You have been given prednisone 60 mg oral here in the ED. Prescription has been sent electronically to [facility] at the [facility]. Continue 50 mg q am for the next 5 days. Follow up clinic as needed. Return to ED as needed if symptoms worsening in any way. Sepsis Event Note (ED) - Evaluation Sepsis Screening Result: No Definite Risk - Focused Exam Vital Signs: Vital Signs Temp Pulse Resp BP Pulse Ox Pulse Ox 03/03/20 21:14 97.4 F 110 H 20 127/84 95 03/03/20 20:45 94 L 03/03/20 19:30 97.6 F 123 H 20 125/87 90 L - My Orders Last 24 Hours: My Active Orders 03/03/20 20:22 Chest 1V Frontal [CR] Stat - Assessment/Plan Last 24 Hours: My Active Orders 03/03/20 20:22 Chest 1V Frontal [CR] Stat
--- NOTE | 2020-03-04 12:50 | CR ---
Chest: Portable view of the chest was obtained. Comparison: Prior chest x-ray of 04/23/19. Findings: Heart size and mediastinum: Heart size and mediastinum appear within normal limits. Lungs: Lungs are clear with no acute parenchymal change. No discrete pleural disease is seen. Osseous: Minimal scoliosis noted within the spine. Nothing acute is seen within the visualized osseous structures. Impression: 1. Findings as noted above. 2. Nothing acute is appreciated. Diagnostic code #2
== END 2020-03-03 21:25 | disposition home or self-care (01) ==
LOC: JD.ED 18:57
DX: J45.909 Unspecified asthma, uncomplicated (principal); R51.9 Headache, unspecified; K21.9 Gastro-esophageal reflux disease without esophagitis; R00.0 Tachycardia, unspecified; E66.9 Obesity, unspecified; Z68.42 Body mass index [BMI] 45.0-49.9, adult; Z91.048 Other nonmedicinal substance allergy status; Z79.899 Other long term (current) drug therapy
CPT/HCPCS: 71045; 94640; 99283; J7512

== ENCOUNTER 2020-03-19 13:00 | Emergency (ER) | payer SELFPAY ==
--- NOTE | 2020-03-19 13:29 | EDM.PDOC ---
ED HPI GENERAL MEDICAL PROBLEM - General Chief Complaint: CPR in Progress Stated Complaint: [facility] Time Seen by Provider: 03/19/20 13:11 Source of Information: Reports: EMS, Other History Limitations: Reports: Other (Formation later obtained from the spouse. She arrived pulseless ,cyanotic and CPR no longer in progress.) - History of Present Illness INITIAL COMMENTS - FREE TEXT/NARRATIVE: 34-year-old female presents to the ED per [facility]. They were called out at approximate 1230 hrs. today for a woman having trouble breathing with a history of asthma. Upon arrival they found her to be diffusely cyanotic pulseless and not breathing. CPR was commenced and patient did receive defibrillation x2 and did receive a dose of epinephrine x1. She was of course bag valve mask oxygenated. They have did generate a heart rate of 152 on the monitor i.e. PEA with no palpable pulse. She then went into asystole in the home. They packaged drip and thought that she had an agonal rhythm prior to putting her in the rig. Upon arrival here she was back in asystole with no pulse and ultrasound done by me showed no cardiac activity. No carotid pulse and not breathing and diffusely cyanotic cool to touch. History gleaned from the indicated that she had been using her inhaler excessively today and had switched to a neb treatment at the time of her collapse. This suggest that she was suffering a severe asthma attack with developing hypoxia and likely respiratory acidosis. Patient was pronounced at 1302 hrs. today. She will become a community relations coordinator's case as essentially she outside of the hospital. Last notes in the computer show that she was seen through the ED on March 03 of this month due to asthma exacerbation. She was taking prednisone on a daily basis according to her . Her reports that she has had chronic asthma since he is known her. No recent suggestion of COVID-19 illness. Onset: Today, Sudden Onset Date: 03/19/20 Onset Time: 12:30 Duration: Minutes: Location: Reports: Chest (Chief complaint was severe dyspnea unable to get her breath.) Quality: Reports: Other (Severe dyspnea secondary to) Severity: Severe (asthma) Improves with: Reports: None Worsens with: Reports: None Context: Reports: Other (Stat home and was found to be pulseless). Denies: Activity, Exercise, Sick Contact, Trauma Associated Symptoms: Reports: Other (Found collapsed on the floor at home cyanotic in color pulseless and not breathing.) Treatments SENIOR BI DEVELOPER: Reports: Other (see below) (Resuscitative efforts by paramedics with bag mask valve ventilation at 100% oxygen. CPR started on scene which produced a great deal of vomitus. Apparently she had a rhythm that was shockable and did receive defibrillation. After giving her 1 dose of epinephrine apparently she generated a heartbeat on the monitor of 152 bpm. At that time is felt he would move her to the rig and then she went into asystole. Apparently she had been asystolic prior to the injection of epinephrine and never did have a defined pulse indicating pulseless electrical activity.) - Related Data Allergies Allergy/AdvReac Type Severity Reaction Status Date / Time animal dander Allergy Shortness Verified 10/22/19 18:50 of Breath seasonal allergies Allergy Other Uncoded 10/22/19 18:50 Home Meds: Home Meds Cetirizine [ZyrTEC] 10 mg PO DAILY 09/15/17 [History] Ferrous Sulfate 325 mg PO DAILY 09/15/17 [History] raNITIdine HCl [Zantac] 150 mg PO BID PRN 09/15/17 [History] Albuterol [Ventolin HFA] 1 - 2 puff INH Q4H PRN #1 mdi 04/11/19 [Rx] Budesonide/Formoterol [Symbicort 160-4.5 MCG] 2 puff INH BID #1 mdi 04/11/19 [Rx] Cyclobenzaprine [Flexeril] 10 mg PO TID PRN 04/23/19 [History] predniSONE 20 mg PO ASDIRECTED #18 tab 04/23/19 [Rx] predniSONE [Prednisone] 50 mg PO DAILY #5 tablet 03/03/20 [Rx] Past Medical History HEENT History: Reports: Allergic Rhinitis Other HEENT History: sinus headaches Cardiovascular History: Reports: None Other Cardiovascular History: tahycardia due to increased meds given while in hospital. Respiratory History: Reports: Asthma Other Respiratory History: RSV, bronchial pneumonia has had breathing issues since then approx. 15 yrs. 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, Recurrent [employer] History: Reports: Musculoskeletal History: Reports: Arthritis, Fibromyalgia Neurological History: Reports: Migraines Psychiatric History: Reports: Anxiety, Depression, Other (See Below) Endocrine/Metabolic History: Reports: Obesity/BMI 30+ Hematologic History: Reports: Anemia Immunologic History: Reports: None Oncologic (Cancer) History: Reports: None Dermatologic History: Reports: None - Infectious Disease History Infectious Disease History: Reports: Chicken Pox, RSV - Past Surgical History HEENT Surgical History: Reports: Naso-Sinus Surgery Other HEENT Surgeries/Procedures: sinus surgery Respiratory Surgical History: Reports: None GI Surgical History: Reports: Bariatric Procedure Other GI Surgeries/Procedures: gastric "sleeve"-2015 Female Surgical History: Reports: Section, Tubal Ligation Endocrine Surgical History: Reports: None Neurological Surgical History: Reports: None Musculoskeletal Surgical History: Reports: None, Other (See Below) Other Musculoskeletal Surgeries/Procedures:: slipped discs, and spinal degeneration Dermatological Surgical History: Reports: None Social & Family History - Family History Family Medical History: No Pertinent Family History - Caffeine Use Caffeine Use: Reports: Coffee - Living Situation & Occupation Living situation: Reports: , with Spouse, with Family (3 kids) Occupation: Unemployed ED ROS GENERAL - Review of Systems Review Of Systems: Unable To Obtain Reason Not Obtained: Patient arrived pulseless and not breathing. ED EXAM, CPR - Physical Exam Exam: See Below Limited By: Unresponsive General Appearance: Other (Patient was diffusely cyanotic in color cool to touch. She had no spontaneous pulses and no heartbeat detected on ultrasound of the heart with no cardiac activity. Monitor shows asystole.) Eye Exam: Right Eye: Other (Pupils are 8 mm and fixed and dilated.) Course - Orders/Labs/Meds Labs: Laboratory Tests 03/19/20 Range/Units 13:07 SARS-CoV-2 RNA (ANGELIQUE) Negative (NEGATIVE) - Radiology Interpretation Free Text/Narrative:: 34-year-old female presents to the ED per [facility] after collapse at home. She is a known severe asthmatic using her albuterol inhaler more than normal this morning. She had switched to nebulizer treatment at the time she requested to call 911. Unfortunately at that time she collapsed and turned blue. Paramedics identified her to be pulseless and not breathing upon arrival. They felt that she did have a shockable rhythm and she was defibrillated once. She did receive epinephrine 1 mg IV which generated PEA with a heart rate of 152 which was short-lived and then she went into asystolic rhythm. Upon arrival in the ED she was asystolic no cardiac activity identified by ultrasound examination of the heart and no spontaneous breathing or pulses palpable. Pronounced at 1302 hrs. I have spoken with the and indicated to him that she has passed. It is up in the air at this point time whether they will pursue an autopsy. Patient will become a community relations coordinator's case and I have discussed the case with Mr. Sharath hawley kolby juarez. I am going to have a COVID-19 screen obtained for analysis to see if there was any signs that it contributed to her sudden . A supine chest x-ray will be done as well. - Re-Assessments/Exams Free Text/Narrative Re-Assessment/Exam: 03/19/20 14:24 COVID-19 screen came back negative. Chest x-ray done portably in supine also does not reveal any abnormalities heart size and mediastinum are normal lungs were clear with no acute parenchymal changes or suggestion of pneumonia. Departure - Departure Time of Disposition: 15:05 Disposition: 20 Condition: Fair Clinical Impression: Respiratory arrest - Discharge Information *PRESCRIPTION DRUG MONITORING PROGRAM REVIEWED*: Not Applicable Referrals: Brice Christie MD [Primary Care Provider] - Forms: ED Department Discharge Additional Instructions: Patient was essentially on arrival. She had no spontaneous pulse no respirations ultrasound revealed no cardiac activity. Monitor showed asystole. Patient pronounced at 1302 hrs. Sharath hawley acting community relations coordinator was notified and will attend the patient in the ED. as of appears to be severe asthma attack precipitating respiratory failure and subsequent cardiac arrest .Unsuccessful resuscitation
--- NOTE | 2020-03-19 13:54 | CR ---
Chest: Portable supine view of the chest was obtained. Comparison: Prior chest x-ray of 03/03/20. Heart size and mediastinum are normal. Lungs are clear with no acute parenchymal change. Bony structures are grossly intact. Impression: 1. Nothing acute is seen on supine chest x-ray. Diagnostic code #1
== END 2020-03-19 18:20 | disposition expired ==
LOC: JD.ED 13:00
DX: R09.2 Respiratory arrest (principal); J45.909 Unspecified asthma, uncomplicated; Z20.828 Contact with and (suspected) exposure to other viral communicable diseases; E66.9 Obesity, unspecified; Z91.048 Other nonmedicinal substance allergy status; Z79.899 Other long term (current) drug therapy
CPT/HCPCS: 71045; 71045-26; 99283; 99285; U0002